=== PATIENT | female | born 1960 | race Caucasian/White ===

== ENCOUNTER → 2021-04-22 16:00 | Outpatient (CLI) | payer OTHER, SELFPAY ==
--- NOTE | ~2021-04-22 | XR_ITS ---
EXAMINATION: XR foot LT min 3V DATE: 04/22/2021 16:13 INDICATION: Left foot pain TECHNIQUE: Dorsoplantar, lateral, and 2 oblique views of the left foot were obtained. COMPARISON: None. FINDINGS: The bones are osteopenic which limits the sensitivity for fracture however none is seen. Th ere is mild dorsal soft tissue swelling of the foot overlying the distal metatarsals. Mild osteoarthr itis is present in multiple interphalangeal joints. A plantar calcaneal enthesophyte is noted. IMPRESSION: 1. Soft tissue swelling of the foot without acute osseous abnormality identified. Reviewed, dictated and finalized at location A. IMPRESSION: 1. Soft tissue swelling of the foot without acute osseous abnormality identifie jeff
== END ==
PROVIDERS: PCP Family Medicine Adolescent Medicine; Visit Provider Physician Assistant
DX: M79.672 Pain in left foot (principal); M79.89 Other specified soft tissue disorders
CPT/HCPCS: 73630

== ENCOUNTER → 2022-07-19 17:11 | Outpatient (CLI) | payer OTHER, SELFPAY ==
--- NOTE | ~2022-07-19 | XR_ITS ---
XR lumbar spine 2-3V DATE: 07/19/2022 17:38 INDICATION: Back pain TECHNIQUE: AP, lateral, coned lateral lumbosacral views COMPARISON: None FINDINGS: There is osteopenia. The lumbar vertebrae are normally aligned, without evidence of fracture or bone destruction. The lumb ar pedicles are intact. Mild degenerative disc disease at L1-2, L2-3 and L3-4 and moderate degenerative disc disease and mild retrolisthesis at L4-5. The sacroiliac joints are intact. TIPS catheter is noted. IMPRESSION: Mild to moderate degenerative disc disease Osteopenia Reviewed, dictated and finalized at location A.
--- NOTE | ~2022-07-19 | XR_ITS ---
XR thoracic spine 3V DATE: 07/19/2022 17:38 INDICATION: Thoracic spine pain TECHNIQUE: AP, lateral, swimmer views COMPARISON: None FINDINGS: Incidentally noted is a portosystemic shunt catheter. There is slight levoscoliosis of the thoracic spine. There is osteopenia. There is minimal degenerati ve spurring of the thoracic spine. No fracture or bone destruction. The thoracic pedicles are intact. No paraspinal soft tissue thickening. IMPRESSION: Osteopenia Slightly the scoliosis Minimal degenerative change TIPS catheter Reviewed, dictated and finalized at location A.
== END ==
PROVIDERS: PCP Family Medicine Adolescent Medicine; Visit Provider Physician Assistant
DX: M85.88 Other specified disorders of bone density and structure, other site (principal); M51.36 Other intervertebral disc degeneration, lumbar region
CPT/HCPCS: 72072; 72100

== ENCOUNTER → 2022-09-23 12:34 | Outpatient (CLI) | payer OTHER, SELFPAY ==
--- NOTE | ~2022-09-23 | DEXA_ITS ---
Bone Density Report Name: TA SUAREZ Age: 62 Sex: Female Ethnicity: White Date of : 1960 Indication: postmenopausal; screening for osteoporosis; Referring Provider: DOMITILA DRUMMOND Study: Bone densitometry was performed. Exam Date: September 23, 2022 Accession number: [id number] Bone Density: Region BMD T-score Z-score Classification AP Spine (L1-L4) 0.900 -1.3 0.4 Osteopenia Femoral Neck (Left) 0.632 -2.0 -0.5 Osteopenia Total Hip (Left) 0.787 -1.3 -0.1 Osteopenia Femoral Neck (Right) 0.581 -2.4 -0.9 Osteopenia Total Hip (Right) 0.751 -1.6 -0.4 Osteopenia Total Hip Mean 0.769 -1.5 -0.3 Osteopenia World Health Organization criteria for BMD impression classify patients as: Normal (T-score at or above -1.0), Osteopenia (T-score between -1.0 and -2.5), or Osteoporosis (T-score at or below -2.5). 10-year Fracture Risk(1): Major Osteoporotic Fracture 12% Hip Fracture 2.2% Reported Risk Factors: [place] (), Neck BMD=0.581, BMI=24.5 (1) FRAX(R) Version 3.08. Fracture probability calculated for an untreated patient. Fracture probability may be lower if the patient has received treatment. Clinical Information Provided by Patient: Has used the following medications: Vitamin D, Calcium Patient maximum height was 67 Menopause Age: 47 No regular weight bearing exercise Does not regularly consume dairy products Drinks caffeinated beverages Onset of menses at age 11 Number of children 2 Missed period for more than 6 months in a row Impression: The patient has low bone mass, based on the Right Femoral Neck T-score. The patient has an estimated ten-year risk of hip fracture of 2.2% and an estimated ten-year risk of major fracture of 12%, based on the WHO FRAX algorithm. Discussion: BONE DENSITY IS LOW AT ONE OR MORE SKELETAL SITES. This patient's lowest T-score is low at one or more skeletal sites. It meets the World Health Organization's (WHO) criteria for ?low bone mass? (T-score between -1.0 and -2.5). The patient's 10-year risk of fracture as calculated by FRAX is less than the threshold where pharmacological therapy is recommended by the National Osteoporosis Foundation (NOF). However, all treatment decisions require clinical judgment and consideration of individual patient factors, including patient preferences, comorbidities, previous drug use, risk factors not captured in the FRAX model (e.g., frailty, falls, vitamin D deficiency, increased bone turnover, interval significant decline in bone density) and possible under or overestimation of fracture risk by FRAX. The patient should follow a healthful lifestyle (good nutrition with adequate calcium and vitamin D, and appropriate weight-bearing exercise). Follow-Up: Consider repeating this study in 2 to 3 years to reassess this patient's
== END ==
PROVIDERS: PCP Family Medicine Adolescent Medicine; Visit Provider Physician Assistant
DX: M85.88 Other specified disorders of bone density and structure, other site (principal); M85.852 Other specified disorders of bone density and structure, left thigh; M85.851 Other specified disorders of bone density and structure, right thigh
CPT/HCPCS: 77080

== ENCOUNTER 2023-02-07 13:01 | Outpatient (CLI) | payer OTHER, SELFPAY ==
[2023-02-07 13:13] LABS: Basophils Absolute Auto 0.1 K/mm3 (0.0-0.1); Eosinophils Absolute Auto 0.3 K/mm3 (0-0.3); Eosinophils Percent Auto 4.8 % (0-4.4); Hematocrit 44.7 % (37.0-47.0); Hemoglobin 13.6 g/dL (12.0-15.0); Immature Granulocyte Absolute 0.02 K/mm3 (0.00-0.031); Immature Granulocyte Percent A 0.3 % (0-0.5); Lymphocytes Absolute Auto 1.12 K/mm3 (0.9-3.2); Lymphocytes Percent Auto 16.8 % (18.3-44.2); Mean Corpuscular HGB Conc 30.4 g/dl (32-36); Mean Corpuscular Hemoglobin 20.6 pg (26-34); Mean Corpuscular Volume 67.7 fl (80-100); Monocytes Absolute Auto 0.4 K/mm3 (0.1-0.6); Monocytes Percent Auto 5.3 % (2.6-8.5); Neutrophils Absolute Auto 4.7 K/mm3 (1.3-6.7); Neutrophils Percent Auto 70.8 % (45.5-73.1); Platelet Count Result 246 k/mm3 (150-375); Red Cell Distribution Width 25.9 % (11.5-14.5); White Blood Count 6.7 K/mm3 (4.5-10.0)
[2023-02-15 10:14] LABS: Hematocrit 46.9 % (35.0-45.0); Hemoglobin 14.3 g/dL (11.7-15.5); MCH 20.4 pg (27.0-33.0); RDW 25.2 % (11.0-15.0)
== END 2023-02-07 13:02 | disposition home or self-care (01) ==
LOC: ANHLAB 13:03
PROVIDERS: PCP Family Medicine Adolescent Medicine; Visit Provider Internal Medicine Hematology & Oncology
DX: D75.1 Secondary polycythemia (principal)
CPT/HCPCS: 36415; 83021; 85025

== ENCOUNTER 2023-10-17 14:07 | Outpatient (CLI) | payer MEDICARE, SELFPAY ==
[2023-10-17 14:25] LABS: Basophils Absolute Auto 0.2 K/mm3 (0.0-0.1); Basophils Percent Auto 2.6 % (0.2-1.2); Eosinophils Absolute Auto 0.4 K/mm3 (0-0.3); Eosinophils Percent Auto 4.4 % (0-4.4); Hematocrit 48.9 % (37.0-47.0); Hemoglobin 14.8 g/dL (12.0-15.0); Immature Granulocyte Absolute 0.06 K/mm3 (0.00-0.031); Immature Granulocyte Percent A 0.7 % (0-0.5); Immature Platelet Fraction Pct 5.2 % (0.9-11.2); Lymphocytes Absolute Auto 1.58 K/mm3 (0.9-3.2); Lymphocytes Percent Auto 17.6 % (18.3-44.2); Mean Corpuscular HGB Conc 30.3 g/dl (32-36); Mean Corpuscular Hemoglobin 20.1 pg (26-34); Mean Corpuscular Volume 66.5 fl (80-100); Monocytes Absolute Auto 0.6 K/mm3 (0.1-0.6); Monocytes Percent Auto 6.6 % (2.6-8.5); Neutrophils Absolute Auto 6.1 K/mm3 (1.3-6.7); Neutrophils Percent Auto 68.1 % (45.5-73.1); Platelet Count Result 228 k/mm3 (150-375); Red Blood Count 7.35 M/mm3 (4.2-5.4); Red Cell Distribution Width 24.9 % (11.5-14.5)
[2023-10-17 14:30] LABS: Anisocytosis 1+ (NORMAL); Microcytosis 1+ (NORMAL); Platelet Estimate Adequate (Adequate); Schistocytes None Seen (NORMAL)
[2023-10-17 14:31] LABS: Ovalocytes 1+ (NORMAL); Poikilocytosis 2+ (NORMAL); Target Cells 1+ (NORMAL)
[2023-10-17 16:38] LABS: Alanine Aminotransferase 23 U/L (6-35); Albumin Level 3.8 g/dL (3.5-5.1); Alkaline Phosphatase 147 U/L (38-126); Anion Gap 7 mmol/L (8-16); Aspartate Amino Transferase 41 U/L (14-36); Bilirubin,Total 2.3 mg/dL (0.2-1.3); Blood Urea Nitrogen 11 mg/dL (7-17); Calcium 9.4 mg/dL (8.4-10.2); Carbon Dioxide 25 mmol/L (22-30); Chloride 108 mmol/L (98-107); Estimated Glomerular Filt Rate > 60; Glucose 77 mg/dL (65-110); Potassium 3.8 mmol/L (3.4-5.0); Sodium 140 mmol/L (137-145)
== END 2023-10-17 14:08 | disposition home or self-care (01) ==
LOC: ANHLAB 14:09
PROVIDERS: PCP Family Medicine Adolescent Medicine; Visit Provider Internal Medicine Hematology & Oncology
DX: R71.8 Other abnormality of red blood cells (principal)
CPT/HCPCS: 36415; 80053; 82728; 85025; 85055

== ENCOUNTER 2024-03-06 14:33 | Outpatient (CLI) | payer MEDICARE, SELFPAY ==
[2024-03-06 16:53] LABS: IFOB Positive Control Positive; Immunochemical Fecal Occult Bl Negative (N)
== END 2024-03-06 14:34 | disposition home or self-care (01) ==
LOC: ANHLAB 14:35
PROVIDERS: PCP Family Medicine Adolescent Medicine; Visit Provider Internal Medicine Hematology & Oncology
DX: R71.8 Other abnormality of red blood cells (principal)
CPT/HCPCS: 82274

== ENCOUNTER 2024-08-26 15:38 | Outpatient (CLI) | payer MEDICARE, SELFPAY ==
[2024-08-26 15:59] LABS: Hematocrit 50.5 % (37.0-47.0); Hemoglobin 15.2 g/dL (12.0-15.0); Immature Platelet Fraction Pct 5.4 % (0.9-11.2); Mean Corpuscular HGB Conc 30.1 g/dl (32-36); Mean Corpuscular Volume 66.4 fl (80-100); Platelet Count Result 222 k/mm3 (150-375); Red Blood Count 7.61 M/mm3 (4.2-5.4); Red Cell Distribution Width 25.4 % (11.5-14.5); White Blood Count 6.9 K/mm3 (4.5-10.0)
[2024-08-26 16:46] LABS: Iron 29 ug/dL (37-170)
[2024-08-26 16:55] LABS: Percent Iron Saturation 9 % (20-50)
[2024-08-26 17:20] LABS: Ferritin 9.21 ng/mL (11.1-264)
== END 2024-08-26 15:39 | disposition home or self-care (01) ==
LOC: ANHLAB 15:40
PROVIDERS: PCP Family Medicine Adolescent Medicine; Visit Provider Internal Medicine Hematology & Oncology
DX: D75.1 Secondary polycythemia (principal); E61.1 Iron deficiency
CPT/HCPCS: 36415; 82728; 83540; 83550; 85027; 85055

== ENCOUNTER → 2025-03-18 14:31 | Outpatient (CLI) | payer MEDICARE, SELFPAY ==
--- NOTE | ~2025-03-18 | XR_ITS ---
EXAM/ PROCEDURE: XR shoulder RT min 2V - 03/18/2025 14:33 CDT HISTORY: 65 years old Female with M25.511 - Pain in right shoulder COMPARISON: None available TECHNIQUE: Four view(s) FINDINGS/ IMPRESSION: There are no fractures or dislocations.Joint space narrowing, subchondral sclerosis, subchondral cyst formation and osteophyte formation, compatible with mild to moderate osteoarthritis. Reviewed, dictated and finalized at location A.
--- NOTE | ~2025-03-18 | XR_ITS ---
EXAM/ PROCEDURE: XR shoulder LT min 2V - 03/18/2025 14:33 CDT HISTORY: 65 years old Female with M25.512 - Pain in left shoulder COMPARISON: None available TECHNIQUE: Four view(s) FINDINGS/ IMPRESSION: There are no fractures or dislocations.Joint space narrowing, subchondral sclerosis, subchondral cyst formation and osteophyte formation, compatible with moderate osteoarthritis. Linear calcific density overlying greater tuberosity, may represent calcific tendinitis. Correlate clinically. Reviewed, dictated and finalized at location A.
--- NOTE | ~2025-03-18 | XR_ITS ---
XR cervical spine min 6V Ordering provider: Monet Delarosa DO History: . M54.2 - Cervicalgia chronic pain to neck and bilat shoulders . Comparison: He FINDINGS: VERTEBRAL BODIES: Normal height and alignment. No visible fracture or subluxation. The dens is intact . DISK SPACES: Well maintained. PARASPINOUS SOFT TISSUES: No prevertebral soft tissue swelling. IMPRESSION: No acute osseous abnormality cervical spine. Reviewed, dictated and finalized at location A.
== END ==
LOC: EXPCRAD 14:33
PROVIDERS: PCP Family Medicine; Visit Provider Family Medicine
DX: M54.2 Cervicalgia (principal); M25.511 Pain in right shoulder; M25.512 Pain in left shoulder
CPT/HCPCS: 72052; 73030

== ENCOUNTER 2025-04-10 13:36 | Outpatient (CLI) | payer MEDICARE, SELFPAY ==
--- OUTSIDE RECORDS SUMMARY | 2025-04-10 13:41 | XMS_ITS | Referral Summary ---
Author Organization [facility] Address [address] [place] [address] Care Team Providers Care Pt Skilled Name Role Phone Ang Moreira MD Primary Care Prov ider Roya Reich MD Unavailable [phone] Ruslan Quinn MD Unavailable [phone] Allergies Active Allergy Reactions Criticality Noted Date Comments Adhesive Tape-Silicones Hives,Rash Medium 12/13/2013 Atorvastatin Other (See comments) Low 12/31/2013 Coconut Vomiting Low 08/11/2015 Fish Containing Products Swelling,Edema Medium Other Unknown 08/11/2015 Rosuvastatin Other (See comments) Low 12/31/2013 Shellfish Swelling Medium Simvastatin Other (See comments) Low 12/31/2013 Medications ergocalciferol (VITAMIN D) 50,000 unit capsuleIndications :Vitamin D deficiency TAKE 1 CAPSULE EVERY WEEK 12/04/19 24 Active Additional Information Patient not taking.Reported on 12/17/2024 losartan (COZAAR) 100 mg tabletIndications: Mixed hyperlipidemia Take 1 tablet (100 mg total) by mouth daily 12/04/19 24 Active melatonin 5 mg tablet Take 1 tablet (5 mg total) by mouth nightly as needed (insomnia) 12/04/19 24 Active Additional Information Patient taking differently: 10 mgoral Nightly PRN, insomnia, Reported on 12/17/2024 aspirin 81 mg enteric coated tablet 1 Daily 12/04/19 Active buPROPion SR (WELLBUTRIN SR) 200 mg 12 hr tablet Take 1 tablet (200 mg total) by mouth daily In the morning 30 tablet 12/04/19 Active Additional Information Patient not taking.Reported on 12/17/2024 lactulose solution 10 gram/15mLIndicatio ns:Hepatic encephalopathy (HCC) Take 30 mL (20 g total) by mouth 3 (three) times a day 12/04/19 Active Additional Information Patient taking differently:30 mL oralAs needed, Reported on 12/12/2024 rifAXIMin (Xifaxan) 550 mg tabletIndications: Hepatic encephalopathy (HCC),Other cirrhosis of liver (HCC) Take 1 tablet (550 mg total) by mouth 2 (two) times a day 12/04/19 Active Additional Information Patient not taking.Reported on 12/17/2024 spironolactone (ALDACTONE) 25 mg tablet Take 1 tablet (25 mg total) by mouth daily 12/04/19 Active LORazepam (ATIVAN) 0.5 mg tabletIndications: anxiety Take 1 tablet (0.5 mg total) by mouth daily as needed for anxiety 12/04/19 Active omeprazole (PriLOSEC) 40 mg capsuleIndications :Gastroesophageal reflux disease without esophagitis TAKE 1 CAPSULE(40 MG) BY MOUTH TWICE DAILY 180 capsule 12/05/19 Active Additional Information Patient taking differently: 40 mg Daily, Reported on 12/17/2024 ezetimibe (ZETIA) 10 mg tablet 01/10/20 Active glucagon (Gvoke HypoPen 2-Pack) 1 mg/0.2 mL auto-injector Inject 1 mg under the skin as needed (for use in case of emergency for hypoglycemia) 0.4 mL 2 05/22/20 Active Additional Information Patient not taking.Reported on 12/17/2024 nortriptyline (PAMELOR) 10 mg capsule TAKE 1 CAPSULE BY MOUTH EVERY DAY AT BEDTIME 90 capsule 1 10/21/19 Active Additional Information Patient taking differently: As needed, Reported on 12/17/2024 flash glucose sensor (FreeStyle Jace 14 Day Sensor) kitIndications:Typ e 2 diabetes mellitus with hyperglycemia, with long-term current use of insulin (HCC) CHANGE EVERY 14 DAYS 6 kit 3 11/05/19 25 Active pen needle, diabetic (Droplet Pen Needle) 32 gauge x needleIndications: Type 2 diabetes mellitus with hyperglycemia, with long-term current use of insulin ([facility]) Use to inject insulin up to 4 times daily, as directed 400 each 10 11/05/19 25 Active insulin glargine (LANTUS) 100 unit/mL (3 mL) pen for injection Inject 25 Units under the skin nightly 15 mL 3 11/06/19 25 025 Active NovoLOG 100 unit/mL (3 mL) pen for injectionIndicatio ns:Type 2 diabetes mellitus with hyperglycemia, with long-term current use of insulin ([facility]) Inject 30u w/ breakfast, 20u w/ lunch, 35u w/ dinner plus a sliding scale of 1:20>150mg/dl. MDD 150u. 45 mL 3 11/28/19 25 Active Active Problems Problem Noted Date Diagnosed Date Encounter for screening exam ination for sexually transmitted disease 12/13/2023 Assessment & Plan (12/13/2023 6:23 PM CDT): Reviewed STI screening form, no concerns for STI testing today DM type 2 (diabetes mellitus, type 2) 11/26/2023 Overview (11/26/2023): dx 2007 Assessment & Plan (11/28/2023 1:29 PM SAND WORKER): -home meds insulin aspart 35 units breakfast, 20 units lunch and 40 units dinner + SSI and Lantus 20 units am and 28 units pm -hgb A1C 7.0 this admission -continue accuchecks QID with [id number] at night, and HD SSI Assessment & Plan (11/26/2023 4:00 AM SAND WORKER): Most recent A1c 7.4. Hyperglycemia on presentation improved. SSI, monitor blood sugar Severe sepsis 11/26/2023 Assessment & Plan (11/29/2023 4:21 PM SAND WORKER): Blood and urine with e coli, coleman sensitive -urine culture with e coli -3/2 blood cultures x 2 with coleman sensitive e.coli -nayana->cefe, umer, vanc; d/c umer and vanc now -ECHO pending, LE duplex negative 11/27 -negative HIV -RVP pending, lactate -CT sinus, chest, abdomen and pelvis Assessment & Plan (11/26/2023 4:00 AM SAND WORKER): Secondary to UTI. Received IV fluids, blood cultures sent, lactate improved. Continue IV antibiotics and monitor Polycythemia vera 11/26/2023 Assessment & Plan (11/26/2023 5:21 AM SAND WORKER): -follows with BMT -per last note 06/12/23 plan was to continue ASA 81 mg and f/u in 4 months Assessment & Plan (11/26/2023 4:04 AM SAND WORKER): Positive OLU 2 mutation, follows with Hematology Continue aspirin UTI (urinary tract infection) 11/26/2023 Assessment & Plan (11/29/2023 3:47 PM SAND WORKER): -UA > 50 WBC, Ucx with ecoli from 11/25 -Cefe-->ctx, d/c vanc/umer -plan for 14 day course Anxiety and depression 11/26/2023 Assessment & Plan (11/28/2023 1:24 PM SAND WORKER): -home meds wellbutrin 200 mg , ativan 0.5 mg PRN once daily and nortrilptyline 10 mg nightly -restart nortriptyline Hypoxia 11/26/2023 Assessment & Plan (11/28/2023 1:33 PM SAND WORKER): Requiring NC 2L on ICU admit -repeat CXR -wean 02 for sat>92% -history of YOLANDA, will have bring in home CPAP Primary polycythemia 11/09/2023 Bladder prolapse, female, acquired 11/09/2023 Assessment & Plan (11/09/2023 6:22 PM SAND WORKER): Referral to urology for therapeutic options. Insomnia 03/15/2023 JAK2 gene mutation 10/03/2022 Overview (10/03/2022): Frequent phlebotomy Assessment & Plan (01/02/2023 2:52 PM CDT): -Frequent phlebotomy -affects A1c interpretation. Assessment & Plan (10/03/2022 12:52 PM SAND WORKER): Frequent phlebotomy - affects A1c interpretation. Polycythemia, secondary 07/01/2022 Overview (10/03/2022): OLU-2 mutation. Affects A1c readings due to frequent phlebotomy Assessment & Plan (10/03/2022 1:42 PM SAND WORKER): Affects A1c readings due to frequent phlebotomy Has immunity to COVID-19 virus 11/26/2021 Overview (10/03/2022): Pfizer vaccine x 3 Assessment & Plan (10/03/2022 7:35 AM SAND WORKER): Fully vaccinated, eligible for booster. Assessment & Plan (11/26/2021 3:06 PM SAND WORKER): Fully vaccinated HTN (hypertension) 05/24/2021 Assessment & Plan (11/28/2023 1:32 PM SAND WORKER): -home meds Losartan 100 mg daily -continue to hold Assessment & Plan (04/17/2023 4:37 PM CDT): -BP today is 126/69 -Will continue same antihypertensive medications at this time. Assessment & Plan (01/02/2023 2:52 PM CDT): -BP today is 128/72 -Will continue same antihypertensive medications at this time. Assessment & Plan (06/28/2022 1:41 PM CDT): -BP is 156/82. -Will continue same antihypertensive medications at this time and continue to monitor. Assessment & Plan (03/02/2022 2:26 PM CDT): -BP 158/76 -Will continue same antihypertensive medications at this time and continue to monitor. Assessment & Plan (08/25/2021 11:28 AM SAND WORKER): -BP elevated today -Will continue same antihypertensive medications at this time. -She will monitor BP readings at home and will let cardiology know if BP remains elevated. -She has cardiology follow up on 09/14/21 Diabetes mellitus treated with insulin 0 Assessment & Plan (04/17/2023 4:36 PM CDT): -Currently taking MDI and using Jace -A1C on 04/17/23 was 7.2% -Jace download indicates variable pattern. Will adjust insulin: Lantus 20-->25 units in a.m, 20 units in p.m. and Humalog 40-->35 units at breakfast, 20 units at lunch, and 40 units with supper + correction of 1 : 20 > 150 mg/dl. Will follow with her response. -Discussed diet and activity modifications. -Advised to call with any concerns/complaints regarding glucose readings -Eye exam is up to date Assessment & Plan (01/02/2023 2:51 PM CDT): -Currently taking MDI and using Jace -A1C on 01/02/23 was 7.5% - Jace download indicates overnight elevations of blood sugars. She eats a high carb breakfast and usually drops low a few hours later. Will adjust Basaglar to 20 units in am and 28 units in pm. Will adjust Humalog to 40 units at breakfast, 20 units at lunch, 40 units at supper and continue correction scale. -Discussed diet and activity modifications. -Advised to call with any concerns/complaints regarding glucose readings -Eye exam is due and she has upcoming appt Assessment & Plan (06/28/2022 1:40 PM CDT): -Currently taking MDI and using Jace -A1C on 06/28/22 was 7.5% -Jace download indicates elevated overnight readings. Will increase pm dose of Lantus to 25 units and continue morning dose at 15 units. She has a significant spike after breakfast. Will increase breakfast Humalog dose from 35-->38 units. Will continue 30 units at lunch and 38 units at supper + correction scale. -Discussed diet and activity modifications. -Advised to call with any concerns/complaints regarding glucose readings -Eye exam is up to date Assessment & Plan (03/02/2022 2:26 PM CDT): -Currently taking MDI and using Jace -A1C on 03/02/22 was 7.1% -Jace download indicates episodes of hypoglycemia. Will decrease her Lantus to 15 units in the morning and 25 units in the evening. Will also change her noon dose of Humalog to 25 units. Will follow with her response. -Discussed diet and activity modifications. -Advised to call with any concerns/complaints regarding glucose readings -Eye exam is up to date -Annual labs ordered Assessment & Plan (08/25/2021 11:27 AM SAND WORKER): -Currently taking MDI and using Jace -A1C on 08/25/21 was 7.6% -Jace download indicates persistent elevation of blood sugars overnight. Will increase her pm dose of Lantus from 25-->27 units. Additionally, if she does not eat during the day, she has lows around 3-4 pm. Will her am dose of Lantus from 20--18 units. Will continue same Humalog dose. She will send updates every 1-2 weeks for additional adjustments. -Discussed diet and activity modifications. -Advised to call with any concerns/complaints regarding glucose readings -Eye exam is up to date -Foot exam reveals no evidence of sensation loss Chest pain 09/13/2018 Overview (09/13/2018): Added automatically from request for surgery [id number] S/P TIPS (transjugular intrahepatic portosystemi c shunt) 11/29/2017 YOLANDA (obstructive sleep apnea) 05/08/2017 Assessment & Plan (11/26/2023 5:23 AM SAND WORKER): Will need to ask spouse if she wears CPAP Osteopenia 11/04/2016 Vitamin D deficiency 10/27/2016 Assessment & Plan (01/02/2023 2:51 PM CDT): -Continue current Vitamin D supplement Assessment & Plan (10/03/2022 1:43 PM SAND WORKER): On long-term supplement. Recent level within goal. Assessment & Plan (06/27/2022 9:23 AM CDT): -Continue Vitamin D supplement Assessment & Plan (03/02/2022 2:26 PM CDT): -Continue Vitamin D supplement -repeat level Assessment & Plan (12/01/2021 2:01 PM SAND WORKER): With chronic liver disease. 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 No changes indicated. Assessment & Plan (06/13/2024 6:10 PM CDT): Well controlled with minimal medical management. She will remain on lactulose as needed but understands the need for 3-5 loose stools daily if she becomes confused. Assessment & Plan (11/09/2023 6:21 PM SAND WORKER): Based on intermittent confusion and short-term memory loss. We will restart lactulose 30 cc t.i.d.. She will dose reduce if she has greater than 5 stools daily. Assessment & Plan (05/05/2022 6:57 PM CDT): Well controlled on current medical management. I strongly recommended extra doses of lactulose until her bowels moved when she becomes constipated. Assessment & Plan (04/20/2020 4:58 PM CDT): Subtle changes with memory loss without josé confusion. I encouraged her to remain on the rifaximin. She will only take the lactulose when constipated. Lactulose, routinely, does not improve memory loss. If the mental status changes worsen, the frequency of lactulose use can increase to maintain 3-5 loose stools daily. Uncontrolled type 2 diabetes mellitus with hyper glycemia 04/26/2016 Assessment & Plan (10/03/2022 1:44 PM SAND WORKER): Glucoses high after meals, but correction values often too strong. Needs basal and mealtime insulin adjustments. She would also benefit greatly from pump/CGM management. Assessment & Plan (12/01/2021 2:01 PM SAND WORKER): Needs adjustments in insulins, as noted. Minimize risk of hypoglycemia. Assessment & Plan (07/31/2019 3:54 PM SAND WORKER): Needs adjustments in insulin. Also needs follow-up labs Assessment & Plan (01/12/2019 11:05 AM CDT): diabestes is fairly well controlled, but getting low overnight as noted on Jace CGM, will adjust dose Change Basaglar to 30 Units twice a day Avoid areas of lipohypertrophy of central abdomen which are significant Continue same humalog dose but cautioned regarding enhanced effect of insulin when she changes to new sites. Discussed avoidance and treatment of hypoglycemia. Assessment & Plan (10/09/2018 1:51 PM SAND WORKER): hgba1c is above goal. Under a lot of stress. Will continue same dose, have ordered the Jace CGM sensor for her use. She will need training with CDE when it arrives. Paperwork initiated. She will greatly benefit from CGM, and uses same device. Highly motivated HLD (hyperlipidemia) 04/26/2016 Assessment & Plan (11/26/2023 5:22 AM SAND WORKER): -home med ezetimibe 10 mg Assessment & Plan (04/17/2023 4:36 PM CDT): -Last labs dated 05/02/22 : TC 139 Trig 95 HDL 47 LDL 74 -Continue same medication management Assessment & Plan (01/02/2023 2:52 PM CDT): -Last labs dated 05/02/22 : TC 139 Trig 95 HDL 47 LDL 74 -She has been out of Zetia for a few months -new script sent -plan to repeat labs next visit Assessment & Plan (10/03/2022 1:50 PM SAND WORKER): Statin intolerant. Continue ezetimibe, optimize glycemic control. Assessment & Plan (06/27/2022 9:22 AM CDT): -Last labs dated 05/02/22 : TC 139 Trig 95 HDL 47 LDL 74 -Will continue same medical management Assessment & Plan (03/02/2022 2:26 PM CDT): -Will continue same medical management -repeat lipid panel Assessment & Plan (12/01/2021 2:03 PM SAND WORKER): Statin intolerant. Continue ezetimibe, optimize glycemic control. Assessment & Plan (08/23/2021 11:44 AM SAND WORKER): -Will continue same medical management Assessment & Plan (07/31/2019 3:53 PM SAND WORKER): Continue ezetimibe, optimize glycemic control Fatigue 02/09/2016 Assessment & Plan (01/12/2019 11:05 AM CDT): Due to chronic liver disease Cirrhosis, non-alcoholic 11/17/2015 Assessment & Plan (12/12/2024 6:44 PM CDT): Decompensated by history based on TIPS placement, with reasonable control of complications of advanced liver disease. I suspect the fatigue is related to the cirrhosis. I do not have a good explanation for the urinary frequency. I do not think this is related to her liver disease. I encouraged her to follow-up with Dr. Kumar. I will continue to image the liver every 6 months. She will return in 6 months or when clinically indicated. Assessment & Plan (06/13/2024 6:09 PM CDT): Decompensated by history though currently doing well without much in the way of medical management. Ultrasound obtained earlier today shows no evidence of liver lesion and a patent TIPS. I saw no reason to reinstitute her medical management and I told her to call our office if she is retaining more fluid or if there is confusion/short-term memory loss. She will return in 6 months or when clinically indicated. Assessment & Plan (11/09/2023 6:20 PM SAND WORKER): Decompensated by history though complications currently reasonably well controlled with medical management. Recent MELD score not high enough to warrant transplant evaluation. She will return in 6 months or when clinically indicated. I will continue to image the liver to screen for hepatocellular carcinoma every 6 months. Assessment & Plan (05/11/2023 6:37 PM CDT): Decompensated based on a history of TIPS placement for portal hypertensive bleeding in 2016. The cirrhosis could certainly be contributing to her fatigue, however, I would like to check basic laboratory work to rule out other causes. Apparently she is due for labs from other members of her medical care support team. I sent in orders to [facility]. Obviously, if they are duplicates, the studies need not be repeated. She will be due for an ultrasound of the liver for hepatocellular carcinoma screening in July,. She will return in 6-8 months or when clinically indicated. Assessment & Plan (10/03/2022 1:43 PM SAND WORKER): Followed by Dr. Quinn. Needs optimal glycemic control and long-term vitamin D supplementation. Assessment & Plan (05/05/2022 6:57 PM CDT): Decompensated by history but currently stable on medical management with no significant hepatic synthetic dysfunction. The laboratory work suggests it is premature to place her on the liver transplant waiting list. She understands this is likely in her future. She is due for imaging of the liver as a screen for hepatocellular carcinoma. She will return on an annual basis or when clinically indicated. Assessment & Plan (12/01/2021 1:53 PM SAND WORKER): Needs optimal glycemic control and long-term vitamin D Assessment & Plan (04/20/2020 4:57 PM CDT): Stable; intact hepatic synthetic function with low MELD score. She has had no further evidence of portal hypertensive bleeding since the TIPS was placed. Her most recent ultrasound showed no evidence of TIPS stenosis. I will schedule a follow-up ultrasound in May,. Recent laboratory work is reassuring. There is clearly no indication for a liver transplant evaluation. She understands this may be required at some point in the future. She will return on an annual basis or when clinically indicated. Iron deficiency anemia 11/02/2015 Dyspnea on exertion 12/31/2013 Arthralgia of elbow 11/25/2013 Esophageal dysmotility 08/20/2013 Irritable bowel syndrome 01/22/2011 Gastroesophageal reflux disease 01/22/2011 Benign colonic polyp 01/22/2011 Resolved Problems Problem Noted Date Diagnosed Date Resolved Date Bacteremia 12/01/2023 12/12/2024 Assessment & Plan (12/13/2023 6:25 PM CDT): -Patient present to clinic for a post hospital appointment. She has completed two weeks of IV Ceftriaxone for the treatment of an E. Coli UTI with bacteremia. -She finished antibiotics yesterday and is currently asymptomatic -Reviewed recent labs -We will have her HH pull her PICC line today as she did not want it pulled in clinic - Discussed with patient the rational for treatment, culture results, risk of recurrent infection, signs/symptoms of recurrent infection, and to contact ID clinic with any questions or concerns. ENMANUEL (acute kidney injury) 11/26/2023 Assessment & Plan (11/28/2023 1:23 PM SAND WORKER): -likely pre renal in setting poor PO intake, hyperglycemia and sepsis -Cr back to baseline (bl 0.7) -avoid nephrotoxins -renally dose meds -trend BMP daily Assessment & Plan (11/26/2023 4:09 AM SAND WORKER): Likely prerenal secondary to sepsis, however can not rule out septic ATN at this time. No hypotension reported, patient on losartan for HTN. Referred recently to urology for evaluation of bladder prolapse, urology service stated no evidence of prolapse on vaginal exam PVR of 150 cc. Will check postvoid residual, avoid nephrotoxins, monitor kidney function Portal hypertension 11/02/2015 12/13/19 25 Esophageal varices 11/02/2015 4 Immunizations Immunization Administration Dates Next Due Hep B Vaccine 12/06/1999,10/27/1999 Influenza, Trivalent, Preser vative Free, Intramuscular 07/10/2017 Influenza, Unspecified 06/28/2016 Pneumococcal Conjugate, Unspecified 11/05/2015 Pneumococcal Polysaccharide PPV23 2015,11/05/2015,09/25/2015,09/25 Social History Tobacco Use Types Packs/Day Years Used Date Smoking Tobacco: Former Cigarettes 3 21 1 971 - 1992 Smokeless Tobacco: Never Tobacco Cessation:Counseling Given: Not Answered Alcohol Use Standard Drinks/Week Comments No 0 (1 standard drink = 0.6 oz pur e alcohol) quit drinking November 2015 [employer] Answer Date Recorded In the past 12 months has [place], gas, oil, or water [employer] threatened to shut off services in your home? No 12/05/2023 Social Connection and Isolat ion Panel [NHANES] Answer Date Recorded In a typical week, how many times do you talk on the phone with family, friends, or neighbors? More than three times a week 12/05/2023 How often do you get togethe r with friends or relatives? More than three times a week 12/05/2023 How often do you attend chur or hoahaoism services? More than 4 times per year 12/05/2023 Do you belong to any clubs o r organizations such as episcopalian groups, unions, fraternal or athletic groups, or school groups? No 12/05/2023 How often do you attend meet ings of the clubs or organizations you belong to? Never 12/05/2023 Are you , , di vorced, , never , or living with a partner? 12/05/2023 AUDIT-C Answer Date Recorded Q1: How often do you have a drink containing alc ohol? Monthly or less 11/05/2024 Q2: How many drinks containi ng alcohol do you have on a typical day when you are drinking? 1 or 2 11/05/2024 Q3: How often do you have si x or more drinks on one occasion? Never 11/05/2024 Overall Financial Resource Strain (CARDIA) Answe r Date Recorded How hard is it for you to pa y for the very basics like food, housing, medical care, and heating? Not hard at all 12/05/2023 Hunger Vital Sign Answer Date Recorded Within the past 12 months, y ou worried that your food would run out before you got the money to buy more. Never true 12/05/19 24 Within the past 12 months, t he food you bought just didn't last and you didn't have money to get more. Never true 12/05/2023 PRAPARE - Transportation Answer Date Re corded In the past 12 months, has l ack of transportation kept you from medical appointments or from getting medications? No 11/23 In the past 12 months, has l ack of transportation kept you from meetings, work, or from getting things needed for daily living? No 12/05/2023 Housing Stability Vital Sign Answer Te e Recorded In the last 12 months, was t here a time when you were not able to pay the mortgage or rent on time? No 12/05/2023 In the last 12 months, how many places have you lived? 1 12/05/2023 In the last 12 months, was t here a time when you did not have a steady place to sleep or slept in a penitentiary (including now)? No 12/05/2023 Personal Safety Answer Date Recorded Have you ever been in or are you currently in a harmful physical or emotional relationship or is someone making you feel afraid or unsafe? Denies 11/25/2023 Comments No Sex and Gender Information Value Date Recorded Sex Assigned at Not on file Legal Sex Female 9:04 AM SAND WORKER Gender Identity Not on file Sexual Orientation Straight 02/07/2020 6: 34 PM CDT Last Filed Vital Signs Vital Sign Reading Time Taken Comments Blood Pressure 155/81 12/17/2024 11:19 AM CDT no blood prssure meds for the patient this morning Pulse 91 12/17/2024 11:19 AM CDT Temperature 36.4 C (97.5 F) 12/17/2024 11:19 AM CDT Respiratory Rate 18 11/05/2024 4:11 PM SAND WORKER Oxygen Saturation 99% 12/11/2023 8:5 0 AM CDT Inhaled Oxygen Concentration - - Weight 68.5 kg (151 lb) 12/17/2024 11:1 9 AM CDT Height 171.2 cm (5' 7.4) 12/17/2024 11 :19 AM CDT Body Mass Index 23.37 12/17/2024 11:19 AM CDT Plan of Treatment Not on file Medical Devices Implanted Type Area Casing Man Device Identifier Shelf Expiration Date Model / Serial / Lot [employer] Peripheral Vascular [id number] Lifestar 14mm 60mm 80cm Stent Biliary - [id number] Implanted:Qty: 1 on 09/04/2019 at [facility] Peripheral Vascular 04/04/2022 [id number] / / [id number] [employer] Peripheral Vascular [id number] Fluency Plus 12mm 10fr 60mm 80cm Self Expand Radiopaque Coaxial - [id number] Implanted:Qty: 1 on 09/04/2019 at [facility] Peripheral Vascular 01/04/2022 [id number] / / [id number] Procedures Procedure Name Priority Date/Time Associated Diagnosis Comments EGFR Routine 12/12/2024 10:38 AM CDT Cirrhosis, non-alcoholic (HCC) HEMOGLOBIN A1C Routine 11/05/2024 5:26 PM SAND WORKER Type 2 diabetes mellitus with hyperglycemia, with long-term current use of insulin (HCC) Mixed hyperlipidemia ALBUMIN CREATININE RATIO, URINE Routine 11/05/2024 5:26 PM SAND WORKER Type 2 diabetes mellitus with hyperglycemia, with long-term current use of insulin (HCC) Mixed hyperlipidemia LIPID PANEL Routine 06/13/2024 2:15 PM CDT Cirrhosis, non-alcoholic (HCC) COLONOSCOPY 04/29/2021 12:28 PM CDT BONE MINERAL DENSITY 11/01/2016 SERUM HEPATITIS C AB Routine 11/02/2015 3:20 AM SAND WORKER from Last 3 Months or Most Recently Relevant to Health Maintenance Results * eGFR (12/12/2024 10:38 AM CDT) eGFR >90 >=60 mL/min/1. 73 m2 Comment: Interpretive Data Reference Interval Normal >/= 90 mL/min/1.73m2 Mildly decreased* 60 - 89 mL/min/1.73m2 Mildly to moderately decreased 45 - 59 mL/min/1.73m2 Moderately to severely decreased 30 - 44 mL/min/1.73m2 Severely decreased 15 - 29 mL/min/1.73m2 Kidney Failure < 15 mL/min/1.73m2 *Relative to young adult level Estimated glomerular filtration rate is determined by the 2020 CKD-EPI equation recommended by the National Kidney Foundation (A Unifying Approach to GFR Estimation: Recommendations of the NKF-ASK Task Force on Reassessing the Inclusion of Race in Diagnosing Kidney Disease, JASN 2020). The CKD-EPI equation should not be used for patients with unstable renal function and has not been validated in children and those over 70. Current interpretive data was last reviewed 2021. Blood 12/12/2024 10:3 8 AM CDT 12/12/2024 11:32 AM CDT Ruslan Quinn MD LAB BLOOD ORDERABLES F inal Result [facility] Department [place] [address] * Albumin Creatinine Ratio, Urine (11/05/2024 5:26 PM SAND WORKER) Albumin Ur <12.0 mg/L Comment: Interpretive Data No reference range established. Current interpretive data was last revised 2019. Creatinine Ur 61.0 mg/dL K[facility] DOYLE Comment: Interpretive Data No reference range established. Current interpretive data was last revised 2019. Albumin Creatinine Ratio, Ur <20 1 - 29 mg/g KIMO DOYLE Urine 11/05/2024 5:26 PM SAND WORKER 11/05/2024 6:17 PM SAND WORKER Jerry Venegas MD PhD LAB URINE ORDERABLES Fin al Result Performing Organization Address [facility] de Phone Number [facility] Department [place] [address] * (ABNORMAL) Hemoglobin A1c (11/05/2024 5:26 PM SAND WORKER) Hgb A1C 6.9(H) 4.0 - 5.6 % Estimated Average Glucose 151 mg/dL [facility] Comment: The ADA recommends reporting an estimated Average Glucose (eAG) with all Hemoglobin A1c results using the equation derived from a study of 507 normal and diabetic adults. Minority populations were underrepresented and children were not included. (Diabetes Care 2020; 43(S1): S66-S76). The eAG is not equivalent to a fasting glucose. Blood 11/05/2024 5:26 PM SAND WORKER 11/05/2024 6:18 PM SAND WORKER Jerry Venegas MD PhD LAB BLOOD ORDERABLES Fin al Result Performing Organization Address [facility] de Phone Number [facility] Department [place] [address] * (ABNORMAL) Lipid panel (06/13/2024 2:15 PM CDT) Pathologist [facility] Triglycerides 131 <150 mg/dL [facility] Comment: Desirable: <150 mg/dL, fasting <175 mg/dL, non-fasting Persistently elevated triglycerides may enhance atherosclerotic cardiovascular disease. Total Cholesterol 128 <200 mg/dL [facility] Total HDL-C Direct 43(L) >50 mg/dL [facility] Comment: A low HDL-C may be inidcative of metabolic syndrome and enhance atherosclerotic cardiovascular disease risk. Non-HDL cholesterol 85 <220 mg/dL [facility] Friedewald LDL Chol 59 <190 mg/dL [facility] Comment: The inaccuracy of the Friedewald equation at LDL Cholesterol less than 70 mg/dL has been documented. Various other calculations are under investigation, such as Parish Lopez et al. LESVIA Cardiol. 2020;5(5):540-548 or Anil SS et al. LESVIA Cardiol. 2018;3(8):749-753. Consider the use of non-HDL-c to estimate atherosclerotic cardiovascular disease risk. Blood 06/13/2024 2:15 PM CDT 06/13/2024 3:16 PM CDT Narrative [facility] - 06/13/2024 3:51 PM CDT Current interpretive data was last updated August 27, 2021. For adults ages 40-79, the ACC/AHA recommends discussing your 10-year atherosclerotic cardiovascular disease risk with your health care provider. https://www.acc.org/ASCVDApp us Ruslan Quinn MD LAB BLOOD ORDERABLES F inal Result [facility] * COLONOSCOPY (04/29/2021 12:28 PM CDT) Anatomical Region Laterality Modality Other Narrative Procedure Note Kasi Paris MD - 04/29/2021 12:28 PM CDT ENDOSCOPY LAB Patient Name: Nini Mcleod Procedure Date: 04/29/2021 12:28 PM Date of : 1960 Admit Type: Outpatient Age: 61 Gender: Female Attending MD: Kasi Paris M.D. Room: [facility] ENDOSCOPY ROOM 03 Note Status: Finalized Procedure: Colonoscopy Indications: Surveillance: Personal history of colonic polyps,Last colonoscopy: September 2015 Providers: Ej Paris M.D. Referring MD: Ang Moreira M.D., Ruslan Quinn M.D. Medicines: Monitored Anesthesia Care Complications: No immediate complications. Estimated Blood Loss: Estimated blood loss: none. Procedure: Pre-Anesthesia Assessment: - Immediately prior to administration ofmedications, the patient was re-assessed for adequacy to receive sedatives. The benefits, risks and alternatives of theprocedure and sedation were discussed and informed consentwas obtained. All questions were answered. Please referto the signed informed consent document in the medical record. The scope was passed under direct vision.The [id number] was introduced through the anusand advanced to the cecum, identified by appendiceal orifice and ileocecal valve. The colonoscopy was performed without difficulty. The patient tolerated the procedure well. The quality of the bowel preparation was evaluated using the BBPS (BostonBowel Preparation Scale) with scores of: Right Colon = 3, Transverse Colon = 3 and Left Colon = 3 (entiremucosa seen well with no residual staining, smallfragments of stool or opaque liquid). The total BBPS score equals 9. Bowel prep was administered using a split dose. Findings: The entire examined colon appeared normal on direct and retroflexion views. The previously noted rectal varices are no longer evident. No polyps seen. Impression: - The entire examined colon is normal on direct and retroflexion views. - No specimens collected. Recommendation: - Repeat colonoscopy in 5 years for surveillance. Electronically signed by Ej Paris MD Kasi Paris M.D. 04/29/2021 12:44:31 PM Number of Addenda: 0 Note Initiated On: 04/29/2021 12:28 PM us Kasi Paris MD ENDOSCOPY PROCEDURES Final Result * BONE MINERAL DENSITY (11/01/2016) Anatomical Region Laterality Modality Radiographic Benita ging Narrative 11/01/2016 Ordered by an unspecified provider. us Historical Provider IMG DXA PROCEDURES Final Result * Serum Hepatitis C ab (11/02/2015 3:20 AM SAND WORKER) HCV ab Negative NEG HISTORICAL RESULTS Comment: Interpretive Data If confirmation is required, call Laboratory Customer Service to request sample to be sent to [facility] for Hepatitis C Virus (HCV) RNA Detection and Quantitation by Real-Time Reverse Correctional Nurse-PCR (RT-PCR). Current interpretive data vas last revised on 12/19/2011 Serum 11/02/2015 3:20 AM SAND WORKER Narrative HISTORICAL RESULTS - 11/03/2015 6:05 AM SAND WORKER Test performed at [facility], [address] [facility],, [place], [place], [place], [address]. us Jefferson Foss MD LAB BLOOD ORDERABLES Fi nal Result HISTORICAL RESULTS from Last 3 Months or Most Recently Relevant to Health Maintenance Insurance [employer] CHOICE MEDICARE PPO [facility] CHOICE PLUS [facility] [employer] MEDICARE PPO Advance Directives For more information, please contact: [phone] * LIMITED - No CPR (Latest Code Status on File) Date Activated Date Inactivated Comments 12/02/2023 11:29 PM 12/04/2023 6:26 PM Question Answer Comments Provide aggressive medical m anagement before a full cardiopulmonary arrest occurs. Use antibiotics, IV Fluids, and medical treatment unless specifically selected below: No intubationNo cardioversion Discussed with the following attending physician: Jose Rodriguez * Full Code Date Activated Date Inactivated Comments 11/26/2023 4:28 AM 12/02/2023 11:29 PM * Full Code Date Activated Date Inactivated Comments 04/29/2021 11:30 AM 04/29/2021 5:36 PM * Full Code Date Activated Date Inactivated Comments 09/04/2019 12:36 PM 09/05/2019 10:04 AM * Full Code Date Activated Date Inactivated Comments 10/03/2018 9:16 AM 10/03/2018 1:14 PM Care Teams Pt Skilled Relationship Specialty Start Date End Date Ang Moreira MD [address] [place] [address] PCP - General 11/24/16 Roya Reich MD [address] [place] [address] Referring Physician Endocrinology Diabetes & Metabolism 12/01/21 Rulsan Quinn MD [address] [place] [address] Referring Physician Transplant Hepatology 12/01/21
--- OUTSIDE RECORDS SUMMARY | 2025-04-10 13:42 | XMS_ITS | Encounter Summary ---
Author Organization [facility] Address 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 Gender Identity Not on file Sexual Orientation Not on file documented as of this encounter Plan of Treatment Upcoming Encounters Date Type Department Care Team (Late st Contact Info) Description 04/15/2025 11:45 AM CDT Office Visit [facility] Oncology and Hematology - J[place] [address] [facility] [address] [place] [address] Rusty Loera MD [address] [facility] [address] [place] [address] documented as of this encounter Visit Diagnoses Not on filedocumented in this encounter Care Teams Brake Assembler Relationship Specialty Start Date End Date Ang Moreira MD PCP - General Family Practice 07/01/22 documented as of this encounter
--- OUTSIDE RECORDS SUMMARY | 2025-04-10 13:42 | XMS_ITS | Encounter Summary ---
Author Organization [facility] Address 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 Gender Identity Not on file Sexual Orientation Not on file documented as of this encounter Plan of Treatment Upcoming Encounters Date Type Department Care Team (Late st Contact Info) Description 04/15/2025 11:45 AM CDT Office Visit [facility] Oncology and Hematology - [place] [address] [facility] [address] [place] [address] Rusty Loera MD [address] [facility] [address] [place] [address] documented as of this encounter Visit Diagnoses Not on filedocumented in this encounter Care Teams Ground Crew Linesman Relationship Specialty Start Date End Date Ang Moreira MD PCP - General Family Practice 07/01/22 documented as of this encounter
--- OUTSIDE RECORDS SUMMARY | 2025-04-10 13:42 | XMS_ITS | Data Portability ---
Author Organization [place] [facility] [place] [employer] [facility], Main Office Address [address] [place] [address] Assessment Encounter Date Assessment Date Assessment LastModified by Organization Details LastModified Time 01/25/2024 01/25/2024 This note is dictated and transcribed by [employer]. [employer] Supervisor variances may occur. Despite proofreading, typographical errors may occur. Occasional wrong-word or 'fmahc-z-thev' substitutions may have occurred due to the inherent limitations of voice recording. Read the chart carefully and recognize, using context, where substitutions have occurred. Not available 01/29/2024 09:10:12 04/25/2024 04/25/2024 This note is dictated and transcribed by [employer]. [employer] Supervisor variances may occur. Despite proofreading, typographical errors may occur. Occasional wrong-word or 'lqove-i-ycew' substitutions may have occurred due to the inherent limitations of voice recording. Read the chart carefully and recognize, using context, where substitutions have occurred. Not available 04/29/2024 10:07:29 11/12/2024 11/12/2024 This note is dictated and transcribed by [employer]. [employer] Supervisor variances may occur. Despite proofreading, typographical errors may occur. Occasional wrong-word or 'jtaoq-r-fjnd' substitutions may have occurred due to the inherent limitations of voice recording. Read the chart carefully and recognize, using context, where substitutions have occurred. Not available 11/13/2024 09:46:37 02/25/2025 02/25/2025 This note is dictated and transcribed by [employer]. [employer] Supervisor variances may occur. Despite proofreading, typographical errors may occur. Occasional wrong-word or 'cjbfk-c-tkje' substitutions may have occurred due to the inherent limitations of voice recording. Read the chart carefully and recognize, using context, where substitutions have occurred. Not available 02/25/2025 14:52:30 Plan of Treatment Reminders Order Date Submit Date Provider Last Modified By Organization Details Last Modified Time Details Appointments Establish ed Patient 15 2024 01:30P M Tamir Bennett DPM Not available Not available Not available Lab None recorded. Referral None recorded. Procedures None recorded. Surgeries None recorded. Imaging None recorded. Medication Orders None recorded. Patient TargetsNo targets recorded. Patient Instructions Encounter Date Encounter Id Patient Instructions Last Modified By Organization Details Last Modified Time 04/25/2024 [id number] diabetic foot care education Not available 04/29/2024 10:07:39 11/12/2024 [id number] diabetic foot care education Not available 11/13/2024 09:47:32 Reason for Referral None Reported. Problems Name Problem SNOMED Code Status Onset Date Resolution Date Notes Provider Name and Address Organization Details Recorded Time [facility] pain [facility] Pain of hip region 08669762 Active [facility] 10:[facility]57 Bunion 173846988 Active 2022 Tamir Bennett DPM [address], [address], [place], [address] , [employer] 3 16:19:38 Dystrophia unguium 70684859 Active 2022 Tamir Bennett DPM [address], [address], [place], [address] , [employer] 3 16:19:50 Hammer toe 709403573 Active 2022 Tamir Bennett DPM [address], [address], [place], [address] , [employer] 3 16:20:36 Diabetes mellitus 60521630 Active 2022 Tamir Bennett DPM [address], [address], [place], [address] , [employer] 3 16:20:41 Osteoarthriti s 163923312 Active 2022 Tamir Bennett DPM [address], [address], [place], [address] , [employer] 3 11:04:00 Diabetic peripheral neuropathy 094023630 Active 2023 Tamir Bennett DPM [address], [address], [place], [address] , [employer] 4 10:48:52 Foot callus 505447411 Active 2023 Tamir Bennett DPM [address], [address], [place], [address] , [employer] 4 10:49:39 Problem Notes None recorded. Procedures Surgical History Date Name Laterality Status Provider Name and Address Organization Details Recorded Time 5 Nail Debridement completed Tamir Bennett DPM [address], [address], [place], [address], [employer] 02/25/2025 14:52:24 4 Nail Debridement completed Tamir Bennett DPM [address], [address], [place], [address], [employer] 04/29/2024 10:07:19 4 Nail Debridement completed [address], [place], [address], [employer] 01/29/2024 09:09:15 4 Nail Debridement completed [address], [place], [address], [employer] 10/04/2023 10:49:27 4 Callus Debridement, One completed Tamir Bennett DPM [address], [address], [place], [address], [employer] 10/04/2023 10:49:54 3 Nail Debridement completed Tamir Bennett DPM [address], [address], [place], [address], [facility] [employer] [facility] 07/04/2023 16:32:05 3 Nail Debridement completed Tamir Bennett DPM [address], [place], [address], [facility] [employer] [facility] 04/03/2023 10:57:45 3 Nail Debridement completed Tamir Bennett DPM [address], [place], [address], [facility] [employer] [facility] 11/24/2022 17:13:53 Imaging Results None recorded. Procedure Notes None recorded. Medical Equipment None Reported. Allergies No known drug allergies Medications Name Sig Start Date Stop Date Status Note LastModified by Organization Details LastModified Time prednisone 20 mg tablet TK 2 TS PO QD FOR 5 DAYS THEN TK 1 T PO QD FOR 10 DAYS 01/24 completed Not Available Not Available Not Available alendronate 70 mg tablet TAKE 1 TABLET BY MOUTH WEEKLY 01/24 completed Not Available Not Available Not Available omeprazole 40 mg capsule,del ayed release TAKE 1 CAPSULE BY MOUTH TWICE DAILY BEFORE BREAKFAST AND DINNER active Not Available Not Available No t Available tramadol 50 mg tablet TAKE 1 TABLET BY MOUTH EVERY 6 HOURS NEEDED FOR PAIN 04/25 completed Not Available Not Available Not Available spironolact one 25 mg tablet TAKE 1 TABLET BY MOUTH DAILY active Not Available Not Available No t Available bethanechol chloride 25 mg tablet active Not Available Not Available No t Available lorazepam 0.5 mg tablet TAKE 1 TABLET BY MOUTH EVERY DAY AT BEDTIME active Not Available Not Available No t Available nortriptyli ne 10 mg capsule TAKE 1 CAPSULE BY MOUTH EVERY DAY AT BEDTIME active Not Available Not Available No t Available oxybutynin chloride ER 5 mg tablet,exte nded release 24 hr TAKE 1 TABLET BY MOUTH DAILY 04/25 completed Not Available Not Available Not Available mupirocin 2 % topical ointment APPLY TOPICALLY TO THE AFFECTED AREA TWICE DAILY FOR 5 DAYS active Not Available Not Available No t Available ergocalcife rol (vitamin D2) 1,250 mcg (50,000 unit) capsule TAKE 1 CAPSULE BY MOUTH EVERY WEEK active Not Available Not Available No t Available estradiol 0.01% (0.1 mg/gram) vaginal cream APPLY A FINGER TIP AMOUNT VAGINALLY TO INTERNAL LABIA AND VAGINAL OPENING EVERY NIGHT AT BEDTIME 2-3 TIMES PER WEEK 04/25 completed Not Available Not Available Not Available ceftriaxone 10 gram solution for injection 04/25 completed Not Available Not Available Not Available losartan 100 mg tablet TAKE 1 TABLET BY MOUTH DAILY active Not Available Not Available No t Available sertraline 50 mg tablet TK 1 T PO QD active Not Available Not Available No t Available calcitriol 0.25 mcg capsule TAKE 1CAPSULE BY MOUTH TWICE DAILY active Not Available Not Available No t Available spironolact one 50 mg tablet TK 1 T PO BID 01/24 completed Not Available Not Available Not Available bupropion HCl SR 200 mg tablet,12 hr sustained-r elease active Not Available Not Available Not Available insulin lispro (U-100) 100 unit/mL subcutaneou s pen INJECT 35 UNITS UNDER THE SKIN FOR 2 MEALS AND PER SLIDING SCALE. MAX OF 120 UNITS EVERY DAY active Not Available Not Available No t Available ezetimibe 10 mg tablet TAKE 1 TABLET BY MOUTH EVERY DAY active Not Available Not Available No t Available Novolog FlexPen U-100 Insulin aspart 100 unit/mL (3 mL) subcutaneou s active Not Available Not Available Not Available lactulose 10 gram/15 mL oral solution TAKE 30 ML BY MOUTH THREE TIMES DAILY active Not Available Not Available No t Available melatonin active Not Available Not Kajal ilable Not Available aspirin active Not Available Not Avail able Not Available glucagon 01/24 completed Not Available Not Available Not Available rifaximin 04/25 completed Not Available Not Available Not Available FreeStyle Lite Strips USE TO TEST TID 01/24 completed Not Available Not Available Not Available Lantus Solostar U-100 Insulin 100 unit/mL (3 mL) subcutaneou s pen INJECT 20 UNITS UNDER THE SKIN EVERY MORNING AND 28 UNITS EVERY EVENING active Not Available Not Available No t Available Lantus Solostar U-100 Insulin 04/25 completed Not Available Not Available Not Available Xifaxan 550 mg tablet TK 1 T PO BID active Not Available Not Available No t Available FreeStyle Jace 14 Day Sensor kit CHANGE EVERY 14 DAYS active Not Available Not Available No t Available BD Kina 2nd Gen Pen Needle 32 gauge x 5/32 USE WITH INSULIN INJECTION S FOUR TIMES DAILY active Not Available Not Available No t Available Gvoke HypoPen 2-Pack 1 mg/0.2 mL subcutaneou s auto-inject or INJECT 1MG UNDER THE SKIN NEEDED active Not Available Not Available No t Available Vitals Date Recorded Body height Body mass index (BMI) Body weight Heart rate Respiratory rate Oxygen saturation Oxygen saturation in Arterial blood by Pulse oximetry Systolic And Diastolic Provider Name and Address Organization Details Last Updated DateTime 4 172.72 cm 25.1 kg/m2 62550.7 4 g 101 /min 14 /min 98 % 98 % 103/72 mm[Hg] [place] Ibrahim [place] [employer] [facility] [employer] [facility] 4 17:08:27 Date Recorded Body height Body mass index (BMI) Body weight Heart rate Respiratory rate Oxygen saturation Oxygen saturation in Arterial blood by Pulse oximetry Systolic And Diastolic Provider Name and Address Organization Details Last Updated DateTime 5 172.72 cm 25.1 kg/m2 50122.7 4 g 88 /min 14 /min 98 % 98 % 135/70 mm[Hg] [place] Ibrahim [place] [employer] [facility] [employer] [facility] 5 11:52:24 Date Recorded Body height Body mass index (BMI) Body weight Heart rate Respiratory rate Oxygen saturation Oxygen saturation in Arterial blood by Pulse oximetry Systolic And Diastolic Provider Name and Address Organization Details Last Updated DateTime 4 172.72 cm 25.1 kg/m2 38335.7 4 g 108 /min 14 /min 98 % 98 % 127/48 mm[Hg] [place] Ibrahim [place] [employer] [facility] [employer] [facility] 4 17:04:01 Date Recorded Body height Body mass index (BMI) Body weight Body temperature Oxygen saturation Oxygen saturation in Arterial blood by Pulse oximetry Heart rate Systolic And Diastolic Provider Name and Address Organization Details Last Updated DateTime 5 172.72 cm 25.1 kg/m2 55443.7 4 g 98.2 [degF] 98 % 98 % 89 /min 142/88 mm[Hg] [place] [employer] [employer] [facility] 5 14:03:06 Date Recorded Body height Heart rate Systolic And Diastolic Provider Name and Address Organization Details Last Updated DateTime 04/25/2024 172.72 cm 69 /min 125/68 mm[Hg] Monica Kapadia [place] [facility] [place] [employer] 04/25/2024 15:39:42 Social History None recorded. Functional Status None recorded. Mental Status None recorded. Family History Nothing Reported. Medical History No medical history recorded. Gynecological HistoryNo gynecological history recorded. Obstetrics History GPAL:G 0 P 0 0 0 0 Past Encounters Encounter ID Performer Location Encounter Start Date Encounter Closed Date Diagnosis/Indication Diagnosis SNOMED-CT Code Diagnosis ICD10 Code Diagnosis Note [id number] Tamir Bennett DPM [facility] [place] [address] [facility] [address] [place] [address] 11/24/2022 15:52:02 11/29/2022 16:23:23 Hammer toe 228352781 M20.41 M20.42 left 3rd and right 2ndConserv ative and surgical options reviewed with the patientPat ient elects to continue with conservati ve offloading And patient was educated on different types of offloading and shoe gearFollow -up in 3 months Bunion 658222077 M21.61 9 rightas above Diabetes mellitus 004902 09 E11.9 Patient educated on neuropathy , diabetes, diabetic diet, and daily foot exams. Patient is to check feet daily for new wounds, blisters, redness to prevent infection and ulceration s to the feet. Patient will return to clinic in 3 months for diabetic foot workup. Dystrophia unguium 08939 009 L60.3 Nails 1 through 10 were debrided with sharp mechanical debridemen t without incident. Nails were debrided and greater than 50% length and thickness where needed. [id number] Tamir Bennett DPM [facility] [place] [address] [facility] [address] [place] [address] 04/03/2023 10:23:35 04/03/2023 11:22:37 Dystrophia unguium 56360123 L60.3 Nails 1 through 10 were debrided with sharp mechanical debridemen t without incident. Nails were debrided and greater than 50% length and thickness where needed. Diabetes mellitus 566234 09 E11.9 Patient educated on neuropathy , diabetes, diabetic diet, and daily foot exams. Patient is to check feet daily for new wounds, blisters, redness to prevent infection and ulceration s to the feet. Patient will return to clinic in 3 months for diabetic foot workup. Osteoarthritis 977237558 M19.90 educated on treatment optionsPat ient elects to continue with conservati ve managed new and educated on rice therapyEdu cated on changing of shoe lace in shoe gear to prevent pressureFo llow-up as needed [id number] Tamir Bennett DPM [facility] [place] [address] [address] 07/04/2023 14:13:17 07/04/2023 16:35:42 Diabetes mellitus 21662892 E11.9 continue diabetic control per PCPCheck feet daily for wounds infectionC ontinue supportive shoe gear dailyFollo w-up in 3 months for diabetic foot care Dystrophia unguium 60699 009 L60.3 nails debrided without incident Hammer toe 784736203 M20 .41 M20.42 left 3rd and right 2ndConserv ative and surgical options reviewed with the patientPat ient elects to continue with conservati ve offloading And patient was educated on different types of offloading and shoe gearFollow -up in 3 months [id number] Tamir Bennett DPM [facility] [place] [address] [address] 10/03/2023 16:50:30 10/10/2023 16:22:25 Diabetes mellitus 65203437 E11.9 continue diabetic control per PCPCheck feet daily for wounds infectionC ontinue supportive shoe gear dailyFollo w-up in 3 months for diabetic foot care Diabetic p eripheral neuropathy 142168101 E11.40 Dystrophia unguium 12935 009 L60.3 nails debrided without incident Foot callus 686433978 L8 4 Right medial 1st metatarsop halangeal jointrecom mend use of pumice stone to increased pressure and wound [id number] Tamir Bennett DPM [facility] [place] [address] [address] 01/25/2024 16:51:52 01/29/2024 09:54:01 Diabetes mellitus 50665787 E11.9 continue diabetic control per PCPFollow- up in 3 months for diabetic foot care Diabetic p eripheral neuropathy 774848893 E11.40 Patient educated on neuropathy , diabetes, diabetic diet, and daily foot exams. Patient is to check feet daily for new wounds, blisters, redness to prevent infection and ulceration s to the feet. Patient will return to clinic in 3 months for diabetic foot workup. Hammer toe 213345878 M20 .41 M20.42 left 3rd and right 2ndConserv ative and surgical options reviewed with the patientPat ient elects to continue with conservati ve offloading And patient was educated on different types of offloading and shoe gearFollow -up in 3 months Dystrophia unguium 67262 009 L60.3 nails debrided without incident Foot callus 554844329 L8 4 Right medial 1st metatarsop halangeal jointConti nue offloading with wide shoe gear to prevent open wounds and continued callusingr ecommend use of pumice stone to increased pressure and wound [id number] Tamir Bennett DPM [facility] [place] [address] [facility] [address] [place] [address] 04/25/2024 15:24:23 04/29/2024 11:16:30 Diabetes mellitus 71897125 E11.9 continue diabetic control per PCPFollow- up in 3 months for diabetic foot care Diabetic p eripheral neuropathy 484521732 E11.40 Patient educated on neuropathy , diabetes, diabetic diet, and daily foot exams. Patient is to check feet daily for new wounds, blisters, redness to prevent infection and ulceration s to the feet. Patient will return to clinic in 3 months for diabetic foot workup. Dystrophia unguium 86191 009 L60.3 nails debrided without incident [id number] Tamir Bennett DPM [facility] [address] [place] [address] 11/12/2024 11:37:14 11/13/2024 14:22:23 Diabetes mellitus 56725855 E11.9 continue diabetic control per PCPFollow- up in 3 months for diabetic foot care Diabetic p eripheral neuropathy 732247043 E11.40 Patient educated on neuropathy , diabetes, diabetic diet, and daily foot exams. Patient is to check feet daily for new wounds, blisters, redness to prevent infection and ulceration s to the feet. Patient will return to clinic in 3 months for diabetic foot workup. Dystrophia unguium 57375 009 L60.3 nails debrided without incident [id number] Tamir Bennett DPM [facility] [place] [address] [facility] [address] [place] [address] 02/25/2025 13:55:58 02/27/2025 16:24:48 Diabetic peripheral neuropathy 146793650 E11.40 Patient educated on neuropathy , diabetes, diabetic diet, and daily foot exams. Patient is to check feet daily for new wounds, blisters, redness to prevent infection and ulceration s to the feet. Patient will return to clinic in 3 months for diabetic foot workup. Dystrophia unguium 95773 009 L60.3 nails debrided without incident Health Concerns Section Related Observation LastModified by Organization Detai ls LastModified Time None Recorded Concern Status LastModified by Organization Details LastModified Time None Recorded Advance Directives Directive None Recorded Payers Insurance Date Sequence Insurance Name Policy Number Policy Tiwari Covered Member ID Tiwari Member ID Guarantor Name 02/23/2025 1 [employer] (MEDICARE REPLACEMENT/A DVANTAGE - PPO) Nini Mcleod [id number] Nini Mcleod 04/25/2024 1 [facility] [id number] Nini L Mcleod [id number] Nini Mcleod Notes Date Note Type Note Provider Name and Address Organization Details Recorded Time 4 text/html Patient 63-year-old female who returns the office for follow-up on diabetic foot care. Patient states she has been having increased neuropathy sensations to her feet since last visit. Patient denies any open wounds or infection. Patient has mild toe deformities which she has a mild callus to the medial 1st metatarsophalangeal joint. Patient denies any pain with walking. Patient denies any current diabetic shoes or insoles. Patient denies any other complaints would like her nails cut. Tamir Bennett DPM [address] [facility], [place], [address], [facility] [employer] 10/10/2023 14:46:15 4 text/html . Patient is a 63-year-old female diabetic with neuropathy who returns the office for follow-up on routine foot care. Patient has bilateral hammertoes which cause callusing. Patient denies wanting surgery at this time. I did discuss options including offloading and shoe gear alterations to prevent wounds infection. I did recommend the patient wear multi-layer and insoles and diabetic shoes for extra depth to prevent any development of wounds. Patient understands how to review her feet and ensure no wounds have started if this were to occur she is to return immediately. Patient denies any other complaints. Tamir Bennett DPM [address], [place], [address], [employer] 01/29/2024 09:10:50 4 text/html . Patient is a 64-year-old female diabetic who returns the office for follow-up on diabetic foot care secondary to neuropathy and elongated toenails. Patient states her nails are long like to have them cut. Patient states she continues have numbness and tingling of the feet she states she has mild pain to the right bunion. Patient denies any open wounds or infection. Patient states she is only comfortable in sandals. Patient denies any other complaints. Tamir Bennett DPM [address], [place], [address], [employer] 04/29/2024 10:07:52 5 text/html . Patient is 64-year-old female with diabetic neuropathy and diabetes she returns for general diabetic foot care she states overall she is doing well she has elongated toenails which he is unable to cut she denies any recent injury or foot wounds. Patient denies any intermittent claudication walking rest pain. Patient denies any other complaints. Tamir Bennett DPM [address], [place], [address], [employer] 11/13/2024 09:47:35 5 text/html . Patient is a 64-year-old female she presents to the office for diabetic foot care. Patient states overall she is doing well she denies any foot pain, wounds, cramping of the legs. Patient states that she would like her nails cut. Patient denies any other complaints. Tamir Bennett DPM [address] [address], [place], [address], [facility] 02/25/2025 14:52:48 OBGyn Episode No OBEpisode recorded.
--- OUTSIDE RECORDS SUMMARY | 2025-04-10 13:42 | XMS_ITS | Clinical Summary ---
Author Organization [facility] Address [address] [place] [address] Care Team Providers Care Chief Catalyst Operator Name Role Phone Ang Moreira MD Primary Care Provider [phone] Allergies No known active allergies Medications INSULIN LISPRO SUBCUT Inject by subcutaneous injection. Active insulin glargine (LANTUS) 100 unit/mL injection Inject by subcutaneous injection. Active losartan (COZAAR) 100 mg tablet Take 1 Tablet by mouth daily. 5 Active spironolactone (ALDACTONE) 25 mg tablet Take 25 mg by mouth daily. 3 Active Active Problems Problem Noted Date Diagnosed Date Primary polycythemia 07/01/2022 Encounters Date Type Department Care Team Description 04/09/2025 External Device Data [facility] ABSTRACTION Provider, Abstract 04/08/2025 External Device Data [facility] ABSTRACTION Provider, Abstract 02/12/2025 External Device Data [facility] ABSTRACTION Provider, Abstract 02/11/2025 External Device Data [facility] ABSTRACTION Provider, Abstract from Last 3 Months Social History Tobacco Use Types Packs/Day Years Used Date Smoking Tobacco: Former Cigarettes 1.5 15 1 975 - 1990 Smokeless Tobacco: Never Tobacco Cessation:Counseling Given: Not Answered Comments Unknown Sex and Gender Information Value Date Recorded Sex Assigned at Not on file 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 Gender Identity Not on file Sexual Orientation Not on file Last Filed Vital Signs Vital Sign Reading Time Taken Comments Blood Pressure 127/71 12/03/2024 2:21 PM CDT Pulse 81 12/03/2024 2:21 PM CDT Temperature 37.2 C (98.9 F) 12/03/2024 2:21 PM CDT Respiratory Rate 15 12/03/2024 2:21 PM CDT Oxygen Saturation 95% 12/03/2024 2:21 PM CDT Inhaled Oxygen Concentration - - Weight 66.8 kg (147 lb 3.2 oz) 12/03/2024 2:21 P M CDT Height 172.7 cm (5' 8) 07/15/2022 11:03 AM CDT Body Mass Index 22.38 07/15/2022 11:03 AM CDT Plan of Treatment Upcoming Encounters Date Type Department Care Team (Late st Contact Info) Description 04/15/2025 11:45 AM CDT Office Visit [facility] Oncology and Hematology [facility] [address] [facility] [address] [facility] [address] [place] [address] Rusty Loera MD [address] [address] [place] [address] Health Maintenance Due Date Last Done Comments DIABETES ANNUAL RETINAL EXAM 1976 DIABETES MICROALBUMIN ANNUAL SCREEN 1976 LDL CHOLESTEROL ANNUAL 1976 DTAP/TDAP/TD VACCINES (1 - Tdap) 1977 BREAST CANCER SCREENING 1998 FIT-DNA Q 3 years 2003 Flex Sig/CT Colonography Q 5 years 2003 ZOSTER VACCINE (1 of 2) 2008 PNEUMOCOCCAL VACCINE 50+ YEA RS (2 of 2 - PCV) 11/05/2016 11/05/2015, 11/05/2015, 09/25/2015 RSV VACCINE (60+ or ) (1 - Risk 60-74 years 1-dose series) 2018 DIABETES ANNUAL FOOT EXAM 10/29/2020 10/29/2019 OSTEOPOROSIS SCREENING 2023 Medicare Advantage ([place]) Preventative Visit/Annual Wellness Visit 09/25/2024 FIT/FOBT Q 1 year 03/06/2025 03/06/2024 INFLUENZA VACCINE (#1) 2025 07/10/2017 DIABETES HBA1C Q 6 MONTHS 05/05/20252024, 05/22/2024, 11/26/2023, Additional history exists COLORECTAL SCREENING 04/29/2031 04/29/2021, 04/29/20 21 Colorectal Cancer Screening 04/29/2031 Procedures Procedure Name Priority Date/Time Associated Diagnosis Comments CHG BLOOD OCCULT FECAL HGB DETER IA QUAL FECES 1-3 Routine 03/06/2024 11:10 AM CDT from Last 3 Months or Most Recently Relevant to Health Maintenance Results * CHG BLOOD OCCULT FECAL HGB DETER IA QUAL FECES 1-3 (03/06/2024 11:10 AM CDT) Rusty Loera MD [facility] - LABORATORY Final Result from Last 3 Months or Most Recently Relevant to Health Maintenance [facility] Member Subscriber Plan / Payer (Ef fective 2023-Present) Name:Nini Mcleod Relation to Subscriber:Self Name:Nini Mcleod Payer ID:Not on file Type:PPO Address: [place] [id number] Care Teams Chief Catalyst Operator Relationship Specialty Start Date End Date Ang Moreira MD PCP - General Family Practice 07/01/22
--- OUTSIDE RECORDS SUMMARY | 2025-04-10 13:42 | XMS_ITS | Clinical Summary ---
Author Organization [facility] Address [address] [place] [address] Care Team Providers Care Engineering Group Manager Name Role Phone Ang Moreira MD Primary Care Prov ider Roya Reich MD Unavailable [phone] Ruslan Quinn MD Unavailable [phone] Allergies Active Allergy Reactions Criticality Noted Date [...] hyperglycemia, with long-term current use of insulin ([facility]) Use to inject insulin up to 4 times daily, as directed 400 each 10 11/05/19 25 Active insulin glargine (LANTUS) 100 unit/mL (3 mL) pen for injection Inject 25 Units under the skin nightly 15 mL 3 11/06/19 25 025 Active NovoLOG 100 unit/mL (3 mL) pen for injectionIndicatio ns:Type 2 diabetes mellitus with hyperglycemia, with long-term current use of insulin ([facility]) Inject 30u w/ breakfast, 20u w/ lunch, [...] 2007 Assessment & Plan (11/28/2023 1:29 PM DOG OR HORSE RACING OFFICIAL): -home meds insulin aspart 35 units breakfast, 20 units lunch and 40 units dinner + SSI and Lantus 20 units am and 28 units pm -hgb A1C 7.0 this admission -continue accuchecks QID with [id number] at night, and HD SSI Assessment & Plan (11/26/2023 4:00 AM DOG OR HORSE RACING OFFICIAL): Most recent A1c 7.4. Hyperglycemia on presentation improved. SSI, monitor blood sugar Severe sepsis 11/26/2023 Assessment & Plan (11/29/2023 4:21 PM DOG OR HORSE RACING OFFICIAL): Blood and urine with e coli, coleman sensitive -urine culture with e coli -3/2 blood cultures x 2 with coleman sensitive e.coli -nayana->cefe, umer, vanc; d/c umer and vanc now -ECHO pending, LE duplex negative 11/27 -negative HIV -RVP pending, lactate -CT sinus, chest, abdomen and pelvis Assessment & Plan (11/26/2023 4:00 AM DOG OR HORSE RACING OFFICIAL): Secondary to UTI. Received IV fluids, blood cultures sent, lactate improved. Continue IV antibiotics and monitor Polycythemia vera 11/26/2023 Assessment & Plan (11/26/2023 5:21 AM DOG OR HORSE RACING OFFICIAL): -follows with BMT -per last note 06/12/23 plan was to continue ASA 81 mg and f/u in 4 months Assessment & Plan (11/26/2023 4:04 AM DOG OR HORSE RACING OFFICIAL): Positive OLU 2 mutation, follows with Hematology Continue aspirin UTI (urinary tract infection) 11/26/2023 Assessment & Plan (11/29/2023 3:47 PM DOG OR HORSE RACING OFFICIAL): -UA > 50 WBC, Ucx with ecoli from 11/25 -Cefe-->ctx, d/c vanc/umer -plan for 14 day course Anxiety and depression 11/26/2023 Assessment & Plan (11/28/2023 1:24 PM DOG OR HORSE RACING OFFICIAL): -home meds wellbutrin 200 mg , ativan 0.5 mg PRN once daily and nortrilptyline 10 mg nightly -restart nortriptyline Hypoxia 11/26/2023 Assessment & Plan (11/28/2023 1:33 PM DOG OR HORSE RACING OFFICIAL): Requiring NC 2L on ICU admit -repeat CXR -wean 02 for sat>92% -history of YOLANDA, will have bring in home CPAP Primary polycythemia 11/09/2023 Bladder prolapse, female, acquired 11/09/2023 Assessment & Plan (11/09/2023 6:22 PM DOG OR HORSE RACING OFFICIAL): Referral to urology for therapeutic options. Insomnia 03/15/2023 JAK2 gene mutation 10/03/2022 Overview (10/03/2022): Frequent phlebotomy Assessment & Plan (01/02/2023 2:52 PM CDT): -Frequent phlebotomy -affects A1c interpretation. Assessment & Plan (10/03/2022 12:52 PM DOG OR HORSE RACING OFFICIAL): Frequent phlebotomy - affects A1c interpretation. Polycythemia, secondary 07/01/2022 Overview (10/03/2022): OLU-2 mutation. Affects A1c readings due to frequent phlebotomy Assessment & Plan (10/03/2022 1:42 PM DOG OR HORSE RACING OFFICIAL): Affects A1c readings due to frequent phlebotomy Has immunity to COVID-19 virus 11/26/2021 Overview (10/03/2022): Pfizer vaccine x 3 Assessment & Plan (10/03/2022 7:35 AM DOG OR HORSE RACING OFFICIAL): Fully vaccinated, eligible for booster. Assessment & Plan (11/26/2021 3:06 PM DOG OR HORSE RACING OFFICIAL): Fully vaccinated HTN (hypertension) 05/24/2021 Assessment & Plan (11/28/2023 1:32 PM DOG OR HORSE RACING OFFICIAL): -home meds Losartan 100 mg daily -continue [...] monitor. Assessment & Plan (08/25/2021 11:28 AM DOG OR HORSE RACING OFFICIAL): -BP elevated today -Will continue same antihypertensive [...] ordered Assessment & Plan (08/25/2021 11:27 AM DOG OR HORSE RACING OFFICIAL): -Currently taking MDI and using Jace -A1C [...] (09/13/2018): Added automatically from request for surgery [id number] S/P TIPS (transjugular intrahepatic portosystemi c shunt) 11/29/2017 YOLANDA (obstructive sleep apnea) 05/08/2017 Assessment & Plan (11/26/2023 5:23 AM DOG OR HORSE RACING OFFICIAL): Will need to ask spouse if she wears CPAP Osteopenia 11/04/2016 Vitamin D deficiency 10/27/2016 Assessment & Plan (01/02/2023 2:51 PM CDT): -Continue current Vitamin D supplement Assessment & Plan (10/03/2022 1:43 PM DOG OR HORSE RACING OFFICIAL): On long-term supplement. Recent level within goal. Assessment & Plan (06/27/2022 9:23 AM CDT): -Continue Vitamin D supplement Assessment & Plan (03/02/2022 2:26 PM CDT): -Continue Vitamin D supplement -repeat level Assessment & Plan (12/01/2021 2:01 PM DOG OR HORSE RACING OFFICIAL): With chronic liver disease. Continue ergocalciferol and calcitriol Assessment & Plan (07/31/2019 3:54 PM DOG OR HORSE RACING OFFICIAL): On multiple supplements, needs follow-up labs Persistent [...] confused. Assessment & Plan (11/09/2023 6:21 PM DOG OR HORSE RACING OFFICIAL): Based on intermittent confusion and short-term memory [...] 04/26/2016 Assessment & Plan (10/03/2022 1:44 PM DOG OR HORSE RACING OFFICIAL): Glucoses high after meals, but correction values often too strong. Needs basal and mealtime insulin adjustments. She would also benefit greatly from pump/CGM management. Assessment & Plan (12/01/2021 2:01 PM DOG OR HORSE RACING OFFICIAL): Needs adjustments in insulins, as noted. Minimize risk of hypoglycemia. Assessment & Plan (07/31/2019 3:54 PM DOG OR HORSE RACING OFFICIAL): Needs adjustments in insulin. Also needs follow-up [...] hypoglycemia. Assessment & Plan (10/09/2018 1:51 PM DOG OR HORSE RACING OFFICIAL): hgba1c is above goal. Under a lot of stress. Will continue same dose, have ordered the Jace CGM sensor for her use. She will need training with CDE when it arrives. Paperwork initiated. She will greatly benefit from CGM, and uses same device. Highly motivated HLD (hyperlipidemia) 04/26/2016 Assessment & Plan (11/26/2023 5:22 AM DOG OR HORSE RACING OFFICIAL): -home med ezetimibe 10 mg Assessment & [...] visit Assessment & Plan (10/03/2022 1:50 PM DOG OR HORSE RACING OFFICIAL): Statin intolerant. Continue ezetimibe, optimize glycemic control. Assessment & Plan (06/27/2022 9:22 AM CDT): -Last labs dated 05/02/22 : TC 139 Trig 95 HDL 47 LDL 74 -Will continue same medical management Assessment & Plan (03/02/2022 2:26 PM CDT): -Will continue same medical management -repeat lipid panel Assessment & Plan (12/01/2021 2:03 PM DOG OR HORSE RACING OFFICIAL): Statin intolerant. Continue ezetimibe, optimize glycemic control. Assessment & Plan (08/23/2021 11:44 AM DOG OR HORSE RACING OFFICIAL): -Will continue same medical management Assessment & Plan (07/31/2019 3:53 PM DOG OR HORSE RACING OFFICIAL): Continue ezetimibe, optimize glycemic control Fatigue 02/09/2016 [...] indicated. Assessment & Plan (11/09/2023 6:20 PM DOG OR HORSE RACING OFFICIAL): Decompensated by history though complications currently reasonably [...] indicated. Assessment & Plan (10/03/2022 1:43 PM DOG OR HORSE RACING OFFICIAL): Followed by Dr. Quinn. Needs optimal glycemic [...] indicated. Assessment & Plan (12/01/2021 1:53 PM DOG OR HORSE RACING OFFICIAL): Needs optimal glycemic control and long-term vitamin [...] 11/26/2023 Assessment & Plan (11/28/2023 1:23 PM DOG OR HORSE RACING OFFICIAL): -likely pre renal in setting poor PO intake, hyperglycemia and sepsis -Cr back to baseline (bl 0.7) -avoid nephrotoxins -renally dose meds -trend BMP daily Assessment & Plan (11/26/2023 4:09 AM DOG OR HORSE RACING OFFICIAL): Likely prerenal secondary to sepsis, however can [...] Conjugate, Unspecified 11/05/2015 Pneumococcal Polysaccharide PPV23 2015,11/05/2015,09/25/2015,09/25 Surgical History Surgery Date Site/Laterality Comments TIPS INITIAL 05/06/2016 N/A CATARACT EXTRACTION CARDIAC CATHETERIZATION TIPS REVISION 08/24/2018 N/A COLONOSCOPY UPPER GASTROINTESTINAL ENDOSCOPY CARPAL TUNNEL RELEASE Bilateral ELBOW SURGERY Bilateral DEBRIDEMENT TENNIS ELBOW Right TUBAL LIGATION TIPS REVISION 09/04/2019 N/A HEMORRHOID SURGERY 09/25/2010 - 09/24/2011 Medical History Medical History Date Comments Insomnia Cirrhosis (HCC) GERD (gastroesophageal reflux disease) Anemia Cataract History of transfusion 2015 Hx pepe + History of anemia DDD (degenerative disc disease), cervical Esophageal varices (HCC) DM type 2 (diabetes mellitus, type 2) (HCC) 11/2023 dx 2008 YOLANDA on CPAP Anxiety and depression 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 24 Colon polyp Hypertension Hyperlipidemia Bacteremia 12/01/2023 Portal hypertension (HCC) 11/02/2015 Family History Medical History Relation Name Comments Diabetes Father Family history of diabetes mellitus - (Added by TW Conv)/Family history of diabetes mellitus - (Added by TW Conv) Heart disease Father Family history of cardiac disorder - (Added by TW Conv)/Family history of cardiac disorder - (Added by TW Conv) Hypertension Father Family history of hypertension - (Added by TW Conv)/Hypertension - (Added by TW Conv)/Family history of hypertension - (Added by TW Conv)/Hypertension - (Added by TW Conv) Kidney disease Father Family histor y of kidney disease - (Added by TW Conv)/Family history of kidney disease - (Added by TW Conv) Lung disease Father Family history of lung disease - (Added by TW Conv)/Family history of lung disease - (Added by TW Conv) Hypertension Mother Hypertension - (Added by TW Conv)/Hypertension - (Added by TW Conv) Cancer Other 1 Cancer - Relati on: Aunt (Added by TW Conv) Cancer Other 2 Cancer - Relati on: Aunt (Added by TW Conv) Relation Name Status Comments Father Mother Other 1 Other 2 Social History Tobacco Use Types Packs/Day Years Used Date Smoking Tobacco: Former Cigarettes 3 21 1 971 - 1991 Smokeless Tobacco: Never Tobacco Cessation:Counseling Given: Not Answered Alcohol Use Standard Drinks/Week Comments No 0 (1 standard drink = 0.6 oz pur e alcohol) quit drinking November 2015 [facility] [employer] Answer Date Recorded In the past 12 months has e [employer], gas, oil, or water company threatened to shut off services in your [...] 12/05/2023 How often do you attend chur ch or zoroastrianism services? More than 4 times per year 12/05/2023 Do you belong to any clubs o r organizations such as worship groups, unions, fraternal or athletic groups, or [...] place to sleep or slept in a [place] (including now)? No 12/05/2023 Personal Safety Answer Date Recorded Have you ever been in or are you currently in a harmful physical or emotional relationship or is someone making you feel afraid or unsafe? Denies 11/25/2023 Comments No Sex and Gender Information Value Date Recorded Sex Assigned at Not on file Legal Sex Female 9:04 AM DOG OR HORSE RACING OFFICIAL Gender Identity Not on file Sexual Orientation Straight 02/07/2020 6: 34 PM CDT Obstetrics History Last Filed Vital Signs Vital Sign Reading Time Taken Comments Blood Pressure 155/81 12/17/2024 11:19 AM CDT no blood prssure meds for the patient this morning Pulse 91 12/17/2024 11:19 AM CDT Temperature 36.4 C (97.5 F) 12/17/2024 11:19 AM CDT Respiratory Rate 18 11/05/2024 4:11 PM DOG OR HORSE RACING OFFICIAL Oxygen Saturation 99% 12/11/2023 8:5 0 AM CDT Inhaled Oxygen Concentration - - Weight 68.5 kg (151 lb) 12/17/2024 11:1 9 AM CDT Height 171.2 cm (5' 7.4) 12/17/2024 11 :19 AM CDT Body Mass Index 23.37 12/17/2024 11:19 AM CDT Plan of Treatment Health Maintenance Due Date Last Done Comments Breast Cancer Screening-Mammogram 1960 Depression Screening 1960 Dilated Eye Exam 1960 DTaP/Tdap/Td Vaccine (1 - Tdap) 1969 Zoster Vaccine (1 of 2) 2008 Osteoporosis Screening-Bone Density Scan 11/01/2018 11/01/2016 Foot Exam 10/29/2020 10/29/2019, 12/24, 10/08/2018, Additional history exists Pneumococcal vaccine 65+ (3 of 3 - PCV20 or PCV21) 11/05/2020 11/05/2015, 11/05/2015, 11/05/2015, Additional history exists Well Visit 65+ 2023 Covid-19 Vaccine (4 - 2023-2 5 season) 2024 07/02/2021, 12/25/2020, 12/04/2020 Fall Risk Assessment 12/03/2024 12/04/2023 Hemoglobin A1C 05/05/2025 11/05/2024, 04/26, 11/26/2023, Additional history exists Influenza Vaccine (#1) 2025 07/10/2017, 2015 Lipid Panel 06/13/2025 06/13/2024, 04/26, 05/02/2022, Additional history exists Albumin Creatinine Ratio, Urine 11/05/2025 11/05/2024, 06/13/2024, 05/15/2023, Additional history exists eGFR 12/12/2025 12/12/2024, 10/26, 08/01/2024, Additional history exists Colon Cancer Screening-Colonoscopy 04/29/2031 04/29/2021, 10/07/2015 Hepatitis C Screening Completed 11/02/2015 Colon Cancer Screening-CT Colonography Discontinued 04/29/2021, 10/07/2015 Colon Cancer Screening-DNA Stool Discontinued 04/29/20 21, 10/07/2015 Colon Cancer Screening-FIT Discontinued 04/29/2021, Colon Cancer Screening-Sigmoidoscopy Discontinued 04/29/2021, 10/07/2015 Medical Devices Implanted Type Area Cargo Tank Mechanic Device Identifier Shelf Expiration Date Model / Serial / Lot [place] Peripheral Vascular [id number] Lifestar 14mm 60mm 80cm Stent Biliary - [id number] Implanted:Qty: 1 on 09/04/[address] [facility] Peripheral Vascular 04/04/2022 [id number] / / [id number] [place] [employer] [id number] Fluency Plus 12mm 10fr 60mm 80cm Self Expand Radiopaque Coaxial - [id number] Implanted:Qty: 1 on 09/04/[address] [facility] Peripheral Vascular 01/04/2022 [id number] / / [id number] Procedures Procedure Name Priority Date/Time Associated Diagnosis Comments EGFR Routine 12/12/2024 10:38 AM CDT Cirrhosis, non-alcoholic (HCC) HEMOGLOBIN A1C Routine 11/05/2024 5:26 PM DOG OR HORSE RACING OFFICIAL Type 2 diabetes mellitus with hyperglycemia, with long-term current use of insulin (HCC) Mixed hyperlipidemia ALBUMIN CREATININE RATIO, URINE Routine 11/05/2024 5:26 PM DOG OR HORSE RACING OFFICIAL Type 2 diabetes mellitus with hyperglycemia, with long-term current use of insulin (HCC) Mixed hyperlipidemia LIPID PANEL Routine 06/13/2024 2:15 PM CDT Cirrhosis, non-alcoholic (HCC) COLONOSCOPY 04/29/2021 12:28 PM CDT BONE MINERAL DENSITY 11/01/2016 SERUM HEPATITIS C AB Routine 11/02/2015 3:20 AM DOG OR HORSE RACING OFFICIAL from Last 3 Months or Most Recently [...] 8 AM CDT 12/12/2024 11:32 AM CDT us Ruslan Quinn MD LAB BLOOD ORDERABLES F inal Result Performing Organization Address [facility] Co de Phone Number [facility] Department [place] [address] * Albumin Creatinine Ratio, Urine (11/05/2024 5:26 PM DOG OR HORSE RACING OFFICIAL) Albumin Ur <12.0 mg/L Comment: Interpretive Data No reference range established. Current interpretive data was last revised 2019. Creatinine Ur 61.0 mg/dL [facility] Comment: Interpretive Data No reference range established. Current interpretive data was last revised 2019. Albumin Creatinine Ratio, Ur <20 1 - 29 mg/g [facility] Urine 11/05/2024 5:26 PM DOG OR HORSE RACING OFFICIAL 11/05/2024 6:17 PM DOG OR HORSE RACING OFFICIAL us Jerry Venegas MD PhD LAB URINE ORDERABLES Fin al Result Performing Organization Address [facility] Co de Phone Number [facility] Department [place] [address] * (ABNORMAL) Hemoglobin A1c (11/05/2024 5:26 PM DOG OR HORSE RACING OFFICIAL) Hgb A1C 6.9(H) 4.0 - 5.6 % Estimated Average Glucose 151 mg/dL [facility] Comment: The ADA recommends reporting an estimated Average Glucose (eAG) with all Hemoglobin A1c results using the equation derived from a study of 507 normal and diabetic adults. Minority populations were underrepresented and children were not included. (Diabetes Care 2020; 43(S1): S66-S76). The eAG is not equivalent to a fasting glucose. Blood 11/05/2024 5:26 PM DOG OR HORSE RACING OFFICIAL 11/05/2024 6:18 PM DOG OR HORSE RACING OFFICIAL us Jerry Venegas MD PhD LAB BLOOD ORDERABLES Fin al Result [facility] Department [place] [address] * (ABNORMAL) Lipid panel (06/13/2024 2:15 PM CDT) Pathologist [facility] Triglycerides 131 <150 mg/dL [facility] Comment: Desirable: <150 mg/dL, fasting <175 mg/dL, non-fasting Persistently elevated triglycerides may enhance atherosclerotic cardiovascular disease. Total Cholesterol 128 <200 mg/dL [facility] Total HDL-C Direct 43(L) >50 mg/dL [facility] Comment: A low HDL-C may be inidcative of metabolic syndrome and enhance atherosclerotic cardiovascular disease risk. Non-HDL cholesterol 85 <220 mg/dL [facility] [place] LDL Chol 59 <190 mg/dL [facility] Comment: The inaccuracy of the [place] equation at LDL Cholesterol less than 70 mg/dL has been documented. Various other calculations are under investigation, such as Parish M, et al. LESVIA Cardiol. 2020;5(5):540-548 or Anil SS et al. LESVIA Cardiol. 2018;3(8):749-753. Consider the use of non-HDL-c to estimate atherosclerotic cardiovascular disease risk. Blood 06/13/2024 2:15 PM CDT 06/13/2024 3:16 PM CDT Narrative [facility] - 06/13/2024 3:51 PM CDT Current interpretive data was last updated August 27, 2021. For adults ages 40-79, the ACC/AHA recommends discussing your 10-year atherosclerotic cardiovascular disease risk with your health care provider. https://www.acc.org/ASCVDApp us Ruslan Quinn MD LAB BLOOD ORDERABLES F inal Result [facility] * COLONOSCOPY (04/29/2021 12:28 PM CDT) Anatomical Region Laterality Modality Other Narrative Procedure Note Kasi Paris MD - 04/29/2021 12:28 PM CDT ENDOSCOPY LAB Patient Name: Nini Mcleod Procedure Date: 04/29/2021 12:28 PM Date of : 1960 Admit Type: Outpatient Age: 61 Gender: Female Attending MD: Kasi Paris M.D. Room: [facility] ENDOSCOPY ROOM 03 Note Status: Finalized Procedure: [...] The scope was passed under direct vision.The [id number] was introduced through the anusand advanced to [...] Initiated On: 04/29/2021 12:28 PM us Kasi Pairs MD ENDOSCOPY PROCEDURES Final Result * BONE MINERAL DENSITY (11/01/2016) Anatomical Region Laterality Modality Radiographic Benita ging Narrative 11/01/2016 Ordered by an unspecified provider. us Historical Provider MD RAMOS DXA PROCEDURES Final Result * Serum Hepatitis C ab (11/02/2015 3:20 AM DOG OR HORSE RACING OFFICIAL) HCV ab Negative NEG HISTORICAL RESULTS Comment: Interpretive Data If confirmation is required, call Laboratory Customer Service to request sample to be sent to [facility] for Hepatitis C Virus (HCV) RNA Detection and Quantitation by Real-Time Reverse Operations Manager-PCR (RT-PCR). Current interpretive data vas last revised on 12/19/2011 Serum 11/02/2015 3:20 AM DOG OR HORSE RACING OFFICIAL Narrative HISTORICAL RESULTS - 11/03/2015 6:05 AM DOG OR HORSE RACING OFFICIAL Test performed at [facility], [address] [facility],, [place], [place], [place], [address]. Jefferson Foss MD LAB BLOOD ORDERABLES Fi nal Result HISTORICAL RESULTS from Last 3 Months or Most Recently Relevant to Health Maintenance Insurance [employer] CHOICE MEDICARE PPO [facility] CHOICE PLUS [facility] HMO/PPO Address: [address] [address] [place] [address] [facility] CHOICE MEDICARE PPO Advance Directives For more information, please contact: [phone] * LIMITED - No CPR (Latest Code [...] 9:16 AM 10/03/2018 1:14 PM Care Teams Engineering Group Manager Relationship Specialty Start Date End Date Ang Moreira MD [address] [place] [address] PCP - General 11/24/16 Roya Reich MD [address] [place] [address] Referring Physician Endocrinology Diabetes & Metabolism 12/01/21 Ruslan Quinn MD [address] [place] [address] Referring Physician Transplant Hepatology 12/01/21
--- OUTSIDE RECORDS SUMMARY | 2025-04-10 13:43 | XMS_ITS | Encounter Summary ---
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 Gender Identity Not on file Sexual Orientation Not on file documented as of this encounter Plan of Treatment Upcoming Encounters Date Type Department Care Team (Late st Contact Info) Description 04/15/2025 11:45 AM CDT Office Visit [facility] Oncology and Hematology - Jey [address] [place] [facility] [address] [place] [address] Rusty Loera MD [address] [facility] [address] [place] [address] documented as of this encounter Visit Diagnoses Not on filedocumented in this encounter Care Teams Bus Operator Relationship Specialty Start Date End Date Ang Moreira MD PCP - General Family Practice 07/01/22 documented as of this encounter
--- OUTSIDE RECORDS SUMMARY | 2025-04-10 13:44 | XMS_ITS | Encounter Summary ---
Author Organization [facility] Address 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 Gender Identity Not on file Sexual Orientation Not on file documented as of this encounter Plan of Treatment Upcoming Encounters Date Type Department Care Team (Late st Contact Info) Description 04/15/2025 11:45 AM CDT Office Visit [facility] Oncology and Hematology - [place] [address] [place] [address] [address] [place] [address] Rusty Loera MD [address] [facility] [address] [place] [address] documented as of this encounter Visit Diagnoses Not on filedocumented in this encounter Care Teams Concrete Worker Relationship Specialty Start Date End Date Ang Moreira MD PCP - General Family Practice 07/01/22 documented as of this encounter
--- OUTSIDE RECORDS SUMMARY | 2025-04-10 13:44 | XMS_ITS | Encounter Summary ---
Author Organization [facility] Address [address] [place] [address] Phone Care Team Providers Care Meat Hostess Name Role Phone Ang Moreira MD Primary Care Prov ider Roya Reich MD Unavailable [phone] Ruslan Quinn MD Unavailable [phone] Ping Rogers RN Unavailable [phone] Encounter Details Date Type Department Care Team (Latest Contact Info) Description 01/10/2019 Orders Only [facility] Scanning, Provider Social History Tobacco Use Types Packs/Day Years Used Date Smoking Tobacco: Former Smokeless Tobacco: Never Comments:quit 30 yrs ago Alcohol Use Standard Drinks/Week Comments No 0 (1 standard drink = 0.6 oz pur e alcohol) quit drinking November 2015 Comments No Sex and Gender Information Value Date Recorded Sex Assigned at Not on file Legal Sex Female 9:04 AM [employer]OLD [employer] Gender Identity Not on file Sexual Orientation Straight 02/07/2020 6: 34 PM CDT documented as of this encounter Plan of Treatment Not on file documented as of this encounter Procedures Procedure Name Priority Date/Time Associated Diagnosis Comments SCAN - LABS 01/10/2019 documented in this encounter Results * SCAN - LABS (01/10/2019) us Provider Scanning Final Result documented in this encounter Visit Diagnoses Not on filedocumented in this encounter Additional Health Concerns Infection Onset Date Last Indicated Resolved Time COVID: Suspected 11/25/2023 11/25/2023 11/25/2023 8:32 PM GOLD [employer] COVID: Suspected 11/28/2023 11/28/2023 11/29/2023 4:01 PM GOLD PL[employer] documented as of this encounter Care Teams Meat Hostess Relationship Specialty Start Date End Date Ang Moreira MD [address] [place] [address] PCP - General 11/24/16 Roya Reich MD [address] [place] [address] Referring Physician Endocrinology Diabetes & Metabolism 12/01/21 Ruslan Quinn MD [address] [place] [address] Referring Physician Transplant Hepatology 12/01/21 Ping Rogers RN [id number] [address] [facility] Outpatient Assistant In Nursing 12/05/23 01/02/24 documented as of this encounter
[2025-04-10 13:52] LABS: Hematocrit 58.8 % (37.0-47.0); Hemoglobin 18.2 g/dL (12.0-15.0); Immature Platelet Fraction Pct 5.9 % (0.9-11.2); Mean Corpuscular HGB Conc 31.0 g/dl (32-36); Mean Corpuscular Hemoglobin 21.3 pg (26-34); Mean Corpuscular Volume 68.9 fl (80-100); Platelet Count Result 201 k/mm3 (150-375); Red Blood Count 8.54 M/mm3 (4.2-5.4); White Blood Count 8.2 K/mm3 (4.5-10.0)
[2025-04-10 20:28] LABS: Iron 45 ug/dL (37-170)
[2025-04-10 20:43] LABS: Percent Iron Saturation 14 % (20-50)
[2025-04-10 21:07] LABS: Ferritin 11.00 ng/mL (11.1-264)
== END 2025-04-10 13:37 | disposition home or self-care (01) ==
PROVIDERS: PCP Family Medicine; Visit Provider Internal Medicine Hematology & Oncology
DX: E61.1 Iron deficiency (principal)
CPT/HCPCS: 36415; 82728; 83540; 83550; 85027; 85055

== ENCOUNTER 2025-04-29 12:45 | Outpatient (CLI) | payer MEDICARE, SELFPAY ==
--- NOTE | ~2025-04-29 | MR_ITS ---
MRI of the left shoulder Technique: Axial proton-density fat-sat images, coronal proton density fat-sat and T2 fat-sat images, and sagittal T1-weighted and T2 fat-sat images were acquired. Clinical History: Pain, weakness Findings: There is [id number] AC joint degenerative change, bony productive change of the dista l clavicle. Coracoclavicular, coracoacromial, and coracohumeral ligaments appear intact. Supraspinatus and infraspinatus tendons are intact, with mild tendinosis. Subscapularis tendon is int act, with moderate tendinosis. Tendon of long head of the biceps is intact. No labral tear evident. Inferior glenohumeral ligament is intact. There is minimal glenohumeral joint effusion. No fluid dist ention of the subacromial/subdeltoid bursa. There is mild degenerative change of the glenohumeral genaro nt. No muscle atrophy or edema. 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 Rotator cuff tendinosis without evidence of tear. Reviewed, dictated and finalized at location . 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 Rotator cuff tendinosis without evidence of tear.
== END 2025-04-29 12:46 | disposition home or self-care (01) ==
LOC: GOSHIMG 12:45
PROVIDERS: PCP Family Medicine; Visit Provider Family Medicine
DX: M25.511 Pain in right shoulder (principal); R29.898 Other symptoms and signs involving the musculoskeletal system; M19.012 Primary osteoarthritis, left shoulder
CPT/HCPCS: 73221